=== PATIENT | female | born 1970 | race African-American/Black ===

== ENCOUNTER 2017-09-09 19:48 | Emergency (ER) | payer OTHER ==
[2017-09-09 20:16] LABS: URINE HCG POC HCG NEGATIVE (Negative)
[2017-09-09 20:27] LABS: BILIRUBIN,URINE NEGATIVE (NEG); CLARITY,URINE CLEAR; COLOR,URINE YELLOW; GLUCOSE,URINE NEGATIVE (NEG); NITRITE,URINE NEGATIVE (NEG); PH,URINE 5.5; PROTEIN,URINE NEGATIVE (NEG-TRACE); UROBILINOGEN,URINE 0.2 mg/dL (0.2 mg/dL)
[2017-09-09 20:40] LABS: BACTERIA,URINE 0 /HPF (0-FEW); RBC,URINE 0 /HPF (0-2); SQUAMOUS EPITHELIAL CELL,UR FEW /LPF
[2017-09-09 20:43] LABS: ADD MAN DIFF? NO
[2017-09-09] MEDS: IV NORMAL SALINE 1000ML BAG 1,000 ML IV (20:48)
[2017-09-09 20:55] LABS: BASO # 0.1 x10^3/uL (0.0-0.2); BASO % 1 % (0-3); EOS # 0.1 x10^3/uL (0.0-0.7); EOS % 1 % (0-3); HEMATOCRIT 25.1 % (36.0-47.0); HEMOGLOBIN 7.9 g/dL (12.0-15.5); LYMPH # 1.9 x10^3/uL (1.0-4.8); LYMPH % 30 % (24-48); MEAN CORPUSCULAR HEMOGLOBIN 21 pg (25-35); MEAN CORPUSCULAR HGB CONC 32 g/dL (31-37); MEAN CORPUSCULAR VOLUME 65 fL (79-100); MONO # 0.6 x10^3/uL (0.0-1.1); MONO % 9 % (0-9); NEUT # 3.9 x10^3uL (1.8-7.7); NEUT % 59 % (31-73); PLATELET COUNT 311 x10^3/uL (140-400); RED BLOOD COUNT 3.84 x10^6/uL (3.50-5.40); RED CELL DISTRIBUTION WIDTH 18.9 % (11.5-14.5); WHITE BLOOD COUNT 6.5 x10^3/uL (4.0-11.0)
[2017-09-09 21:06] LABS: ANION GAP 14 (6-14); BLOOD UREA NITROGEN 8 mg/dL (7-20); CALCIUM 8.9 mg/dL (8.5-10.1); CARBON DIOXIDE 24 mmol/L (21-32); CHLORIDE 101 mmol/L (98-107); CREATININE 0.8 mg/dL (0.6-1.0); GFR 94.3; GLUCOSE 96 mg/dL (70-99); SODIUM 139 mmol/L (136-145)
[2017-09-09 21:33] LABS: PLT ESTIMATE ADEQUATE (ADEQUATE)
[2017-09-09 21:34] LABS: ANISOCYTOSIS SLIGHT; HYPOCHROMIA MARKED; MICROCYTOSIS MARKED; POLYCHROMASIA SLIGHT
[2017-09-09 21:35] LABS: TARGET CELLS OCC; TEAR DROP CELLS OCC
== END 2017-09-09 21:50 | disposition home or self-care (01) ==
LOC: ER 19:48
DX: D50.9 Iron deficiency anemia, unspecified (principal); R42 Dizziness and giddiness; R11.0 Nausea; I10 Essential (primary) hypertension
CPT/HCPCS: 36415; 80048; 81001; 81025; 85025; 87086; 93005; 99285-25; J7030

== ENCOUNTER 2017-12-24 08:49 | Emergency (ER) | payer SELFPAY ==
[~2017-12-24] VITALS: Ht 162.6 cm; Wt 82.6 kg
[~2017-12-24 08:49] MED LIST: FERR325T14 PO
[2017-12-24 09:18] LABS: BILIRUBIN,URINE NEGATIVE (NEG); CLARITY,URINE CLEAR; COLOR,URINE YELLOW; NITRITE,URINE NEGATIVE (NEG); PH,URINE 7.5; PROTEIN,URINE NEGATIVE (NEG-TRACE); UROBILINOGEN,URINE 0.2 mg/dL (0.2 mg/dL)
--- NOTE | 2017-12-24 09:19 | PHYS DOC ---
Past Medical History Past Medical History: Alcoholism, Anemia, Hypertension Additional Past Medical Histor: PICA; blood transfusion Past Surgical History: No Surgical History Additional Information: 5 cigarettes per day Alcohol Use: Heavy Drug Use: None Adult General Chief Complaint Chief Complaint: ALCOHOL INTOXICATION HPI HPI Patient is a 47 year old female with history of alcoholism, anxiety, anemia, who presents today stating "I have alcohol poisoning". Patient states she has been drinking vodka for 3 straight days. She states she has history of binge drinking. She states this morning she noted she was nauseated. Denies any vomiting. She states she does not need help with alcohol use. Review of Systems Review of Systems Constitutional: Denies fever or chills [] Eyes: Denies change in visual acuity, redness, or eye pain [] HENT: Denies nasal congestion or sore throat [] Respiratory: Denies cough or shortness of breath [] Cardiovascular: No additional information not addressed in HPI [] GI: Denies abdominal pain, nausea, vomiting, bloody stools or diarrhea [] : Denies dysuria or hematuria [] Musculoskeletal: Denies back pain or joint pain [] Integument: Denies rash or skin lesions [] Neurologic: Denies headache, focal weakness or sensory changes [] Psych: Reports alcohol intoxication All other systems were reviewed and found to be within normal limits, except as documented in this note. Current Medications Current Medications Current Medications Medications (Trade) Dose Ordered Sig/Beatris Start Time Stop Time Status Last Admin Dose Admin Multivitamins 10 ml/Thiamine HCl 100 mg/Folic Acid 1 mg/Sodium Chloride 1,011.2 ml @ 1,000.088 mls/hr 1X ONCE 12/24/17 09:30 12/24/17 10:30 12/24/17 09:37 1,000.088 MLS/HR Ondansetron HCl (Zofran) 4 mg 1X ONCE 12/24/17 09:30 12/24/17 09:31 DC 12/24/17 09:38 4 MG Pantoprazole Sodium (PROTONIX VIAL for IV PUSH) 40 mg 1X ONCE 12/24/17 09:30 12/24/17 09:31 DC 12/24/17 09:38 40 MG Allergies Allergies Allergies Coded Allergies Type Severity Reaction Last Updated Verified No Known Drug Allergies 07/19/14 No Physical Exam Physical Exam Constitutional: Well developed, well nourished, no acute distress, non-toxic appearance. [] HENT: Normocephalic, atraumatic, bilateral external ears normal, oropharynx moist, no oral exudates, nose normal. [] Eyes: PERRLA, EOMI, conjunctiva normal, no discharge. [] Neck: Normal range of motion, no tenderness, supple, no stridor. [] Cardiovascular:Heart rate regular rhythm, no murmur [] Lungs & Thorax: Bilateral breath sounds clear to auscultation [] Abdomen: Bowel sounds normal, soft, no tenderness, no masses, no pulsatile masses. [] Skin: Warm, dry, no erythema, no rash. [] Back: No tenderness, no CVA tenderness. [] Extremities: No tenderness, no cyanosis, no clubbing, ROM intact, no edema. [] Neurologic: Alert and oriented X 3, normal motor function, normal sensory function, no focal deficits noted. Cranial nerves II through XII intact Psychologic: Patient has been laughing frequently during the visit Current Patient Data Vital Signs Vital Signs Date Time Temp Pulse Resp B/P (MAP) Pulse Ox O2 Delivery O2 Flow Rate FiO2 12/24/17 09:33 72 16 150/91 (110) 97 Room Air 12/24/17 08:55 98.6 98.6 Lab Values Laboratory Tests Test 12/24/17 09:03 12/24/17 09:10 12/24/17 09:30 Urine Collection Type Void Urine Color Yellow Urine Clarity Clear Urine pH 7.5 Urine Specific [place] 1.015 Urine Protein Negative mg/dL (NEG-TRACE) Urine Glucose (UA) Negative mg/dL (NEG) Urine Ketones (Stick) Negative mg/dL (NEG) Urine Blood Negative (NEG) Urine Nitrite Negative (NEG) Urine Bilirubin Negative (NEG) Urine Urobilinogen Dipstick 0.2 mg/dL (0.2 mg/dL) Urine Leukocyte Esterase Negative (NEG) Urine RBC 0 /HPF (0-2) Urine WBC Occ /HPF (0-4) Urine Squamous Epithelial Cells Few /LPF Urine Bacteria 0 /HPF (0-FEW) Urine Opiates Screen Neg (NEG) Urine Methadone Screen Neg (NEG) Urine Barbiturates Neg (NEG) Urine Phencyclidine Screen Neg (NEG) Urine Amphetamine/Methamphetamine Neg (NEG) Urine Benzodiazepines Screen Neg (NEG) Urine Cocaine Screen Neg (NEG) Urine Cannabinoids Screen Neg (NEG) Urine Ethyl Alcohol Pos (NEG) POC Urine HCG, Qualitative Hcg negative (Negative) White Blood Count 3.1 x10^3/uL (4.0-11.0) L Red Blood Count 3.74 x10^6/uL (3.50-5.40) Hemoglobin 9.4 g/dL (12.0-15.5) L Hematocrit 29.0 % (36.0-47.0) L Mean Corpuscular Volume 77 fL (79-100) L Mean Corpuscular Hemoglobin 25 pg (25-35) Mean Corpuscular Hemoglobin Concent 33 g/dL (31-37) Red Cell Distribution Width 18.3 % (11.5-14.5) H Platelet Count 377 x10^3/uL (140-400) Neutrophils (%) (Auto) 48 % (31-73) Lymphocytes (%) (Auto) 36 % (24-48) Monocytes (%) (Auto) 12 % (0-9) H Eosinophils (%) (Auto) 3 % (0-3) Basophils (%) (Auto) 2 % (0-3) Neutrophils # (Auto) 1.5 x10^3uL (1.8-7.7) L Lymphocytes # (Auto) 1.1 x10^3/uL (1.0-4.8) Monocytes # (Auto) 0.4 x10^3/uL (0.0-1.1) Eosinophils # (Auto) 0.1 x10^3/uL (0.0-0.7) Basophils # (Auto) 0.1 x10^3/uL (0.0-0.2) Sodium Level 138 mmol/L (136-145) Potassium Level 3.6 mmol/L (3.5-5.1) Chloride Level 105 mmol/L (98-107) Carbon Dioxide Level 26 mmol/L (21-32) Anion Gap 7 (6-14) Blood Urea Nitrogen 12 mg/dL (7-20) Creatinine 0.7 mg/dL (0.6-1.0) Estimated GFR (Cockcroft-Gault) 109.5 BUN/Creatinine Ratio 17 (6-20) Glucose Level 100 mg/dL (70-99) H Calcium Level 8.3 mg/dL (8.5-10.1) L Total Bilirubin 0.2 mg/dL (0.2-1.0) Aspartate Amino Transferase (AST) 24 U/L (15-37) Alanine Aminotransferase (ALT) 24 U/L (14-59) Alkaline Phosphatase 68 U/L (46-116) Total Protein 7.5 g/dL (6.4-8.2) Albumin 3.4 g/dL (3.4-5.0) Albumin/Globulin Ratio 0.8 (1.0-1.7) L Lipase 156 U/L (73-393) Salicylates Level < 2.8 mg/dL (2.8-20.0) L Salicylate Last Dose Date Unknown Salicylate Last Dose Time Unknown Acetaminophen Level < 2.0 mcg/ml (10-30) L Acetaminophen Last Dose Date Unknown Acetaminophen Last Dose Time Unknown Ethyl Alcohol Level 156 mg/dL (0-10) H Laboratory Tests 12/24/17 09:30 Laboratory Tests 12/24/17 09:30 EKG EKG [] Radiology/Procedures Radiology/Procedures [] Course & Med Decision Making Course & Med Decision Making Pertinent Labs and Imaging studies reviewed. (See chart for details) This is a 47-year-old female patient presented to the ED today complaining of a cold intoxication. Has been drinking vodka 3 days straight. CBC with hemoglobin of 9.4 hematocrit 29.0, patient states she has history of fibroids and runs a low hemoglobin. CMP with no acute findings, alcohol level 156, patient is alert and oriented 3 most of the time laughing during conversations. Offered patient help with alcoholism, she refused. Patient was discharged with instructions to follow-up with her own doctor as needed. Dragon Disclaimer Dragon Disclaimer This electronic medical record was generated, in whole or in part, using a voice recognition dictation system. Departure Departure Impression: Primary Impression: Alcohol intoxication Additional Impression: Anemia Disposition: 01 HOME, SELF-CARE Condition: STABLE Referrals: NO PCP (PCP) Follow-up with [facility] for alcohol use if interested. ZAHRA FORD Jr, MD follow up for chronic fibroids Patient Instructions: Alcohol Intoxication, Anemia, FAQs Additional Instructions: You were evaluated in the emergency room for alcoholism. We recommend you get help at [facility] or any alcoholic anonymous groups of your interest. Consider taking vitamins for your low hemoglobin. Consider following up with an [facility] for fibroids. Come back to the ED at any point symptoms worsen. Problem Qualifiers Primary Impression: Alcohol intoxication Complication of substance-induced condition: uncomplicated Qualified Codes: F10.920 - Alcohol use, unspecified with intoxication, uncomplicated Additional Impression: Anemia Anemia type: unspecified type Qualified Codes: D64.9 - Anemia, unspecified MARIANA BARTHOLOMEW BLOCK MECHANIC Dec 24, 2017 09:19
[2017-12-24 09:23] LABS: BARBITURATES NEG (NEG); BENZODIAZEPINES NEG (NEG); CANNABINOIDS NEG (NEG); COCAINE NEG (NEG); METHADONE NEG (NEG); OPIATES NEG (NEG); PHENCYCLIDINE NEG (NEG)
[2017-12-24 09:24] LABS: AMPHETAMINE/METHAMPHETAMINE NEG (NEG)
[2017-12-24 09:28] LABS: BACTERIA,URINE 0 /HPF (0-FEW); RBC,URINE 0 /HPF (0-2); SQUAMOUS EPITHELIAL CELL,UR FEW /LPF; WBC,URINE OCC /HPF (0-4)
[2017-12-24] MEDS ORDERED: PANTOPRAZOLE IV PUSH 40 MG VIAL. IVP ONE (09:30)
[2017-12-24] MEDS ORDERED: MULTIVIT INFUSN,ADULT 4,VIT K 10 ML, THIAMINE 100 MG, FOLIC ACID 1 MG in IV NORMAL SALI... IV ONE (09:30)
[2017-12-24] MEDS ORDERED: ONDANSETRON PF 4 MG/2 ML VIAL. IV ONE (09:30)
[2017-12-24 09:48] LABS: BASO # 0.1 x10^3/uL (0.0-0.2); BASO % 2 % (0-3); EOS # 0.1 x10^3/uL (0.0-0.7); EOS % 3 % (0-3); HEMOGLOBIN 9.4 g/dL (12.0-15.5); LYMPH # 1.1 x10^3/uL (1.0-4.8); LYMPH % 36 % (24-48); MEAN CORPUSCULAR HEMOGLOBIN 25 pg (25-35); MEAN CORPUSCULAR HGB CONC 33 g/dL (31-37); MEAN CORPUSCULAR VOLUME 77 fL (79-100); MONO # 0.4 x10^3/uL (0.0-1.1); MONO % 12 % (0-9); NEUT # 1.5 x10^3uL (1.8-7.7); NEUT % 48 % (31-73); PLATELET COUNT 377 x10^3/uL (140-400); RED BLOOD COUNT 3.74 x10^6/uL (3.50-5.40); RED CELL DISTRIBUTION WIDTH 18.3 % (11.5-14.5); WHITE BLOOD COUNT 3.1 x10^3/uL (4.0-11.0)
[2017-12-24 09:56] LABS: CALCIUM 8.3 mg/dL (8.5-10.1); CREATININE 0.7 mg/dL (0.6-1.0); GFR 109.5; POTASSIUM 3.6 mmol/L (3.5-5.1)
[2017-12-24 09:57] LABS: ACETAMIN < 2.0 mcg/ml (10-30); ETHANOL 156 mg/dL (0-10); SALIC < 2.8 mg/dL (2.8-20.0)
[2017-12-24 09:58] LABS: ALBUMIN 3.4 g/dL (3.4-5.0); ALBUMIN/GLOBULIN RATIO 0.8 (1.0-1.7); TOTAL BILIRUBIN 0.2 mg/dL (0.2-1.0); TOTAL PROTEIN 7.5 g/dL (6.4-8.2)
[2017-12-24 10:33] VITALS: BP 142/78
== END 2017-12-24 10:55 | disposition home or self-care (01) ==
LOC: ER 08:49
DX: F10.129 Alcohol abuse with intoxication, unspecified (principal); I10 Essential (primary) hypertension; D64.9 Anemia, unspecified; F17.210 Nicotine dependence, cigarettes, uncomplicated; Y90.9 Presence of alcohol in blood, level not specified
CPT/HCPCS: 36415; 80053; 80307; 80329; 81001; 81025; 83690; 85025; 96365; 96375; 99284; C9113; G0480; G6039; J2405; J7030; G0479

== ENCOUNTER 2019-07-21 16:26 | Emergency (ER) | payer SELFPAY ==
[~2019-07-21] VITALS: Ht 167.6 cm; Wt 81.8 kg
--- NOTE | 2019-07-21 16:58 | PHYS DOC ---
Past Medical History Past Medical History: Alcoholism, Anemia, Anxiety, Hypertension, Other Additional Past Medical Histor: PICA; blood transfusion Past Surgical History: No Surgical History Smoking Status: Former Smoker Alcohol Use: Heavy Drug Use: None Adult General Chief Complaint Chief Complaint: MUSCLE SPASM/CR[facility] [place] [employer] HPI Patient is a 48 year old female who presents with cough this been ongoing for several months, sore throat this been ongoing for several months, a tight jaw, and body spasms is been ongoing for several days. Also reports diarrhea and loss of appetite. Denies nausea, vomiting. Has a history of hypertension, thyroid, anemia. Complete ROS were reviewed and found to be within normal limits, except as documented in the HPI Current Medications Current Medications Current Medications Medications (Trade) Dose Ordered Sig/Beatris Start Time Stop Time Status Last Admin Dose Admin Lorazepam (Ativan Inj) 2 mg 1X ONCE 07/21/19 17:00 07/21/19 17:01 DC 07/21/19 17:10 2 MG Allergies Allergies Allergies Coded Allergies Type Severity Reaction Last Updated Verified No Known Drug Allergies 07/19/14 No Physical Exam Physical Exam Constitutional: Well developed, well nourished, no acute distress, non-toxic appearance. [] HENT: Normocephalic, atraumatic, bilateral external ears normal, oropharynx moist, no oral exudates, nose normal. mild tetany of jaw Eyes: PERRLA, EOMI, conjunctiva normal, no discharge. [] Neck: Normal range of motion, no tenderness, supple, no stridor. [] Cardiovascular:Heart rate regular rhythm, no murmur [] Lungs & Thorax: Bilateral breath sounds clear to auscultation [] Extremities: No tenderness, no cyanosis, no clubbing, ROM intact, no edema. [] Neurologic: Alert and oriented X 3, normal motor function, normal sensory function, no focal deficits noted. [] Psychologic: Affect normal, judgement normal, mood normal. [] Current Patient Data Vital Signs Vital Signs Date Time Temp Pulse Resp B/P (MAP) Pulse Ox O2 Delivery O2 Flow Rate FiO2 07/21/19 16:26 98.3 107 20 145/103 (117) 98 Room Air 98.3 Lab Values Laboratory Tests Test 07/21/19 17:10 White Blood Count 5.4 x10^3/uL (4.0-11.0) Red Blood Count 4.45 x10^6/uL (3.50-5.40) Hemoglobin 9.3 g/dL (12.0-15.5) L Hematocrit 30.3 % (36.0-47.0) L Mean Corpuscular Volume 68 fL (79-100) L Mean Corpuscular Hemoglobin 21 pg (25-35) L Mean Corpuscular Hemoglobin Concent 31 g/dL (31-37) Red Cell Distribution Width 20.4 % (11.5-14.5) H Platelet Count 321 x10^3/uL (140-400) Neutrophils (%) (Auto) 50 % (31-73) Lymphocytes (%) (Auto) 37 % (24-48) Monocytes (%) (Auto) 10 % (0-9) H Eosinophils (%) (Auto) 2 % (0-3) Basophils (%) (Auto) 1 % (0-3) Neutrophils # (Auto) 2.7 x10^3/uL (1.8-7.7) Lymphocytes # (Auto) 2.0 x10^3/uL (1.0-4.8) Monocytes # (Auto) 0.5 x10^3/uL (0.0-1.1) Eosinophils # (Auto) 0.1 x10^3/uL (0.0-0.7) Basophils # (Auto) 0.1 x10^3/uL (0.0-0.2) Platelet Estimate Adequate (ADEQUATE) Polychromasia Slight Hypochromasia Mod Anisocytosis Mod Microcytosis Marked Sodium Level 135 mmol/L (136-145) L Potassium Level 3.5 mmol/L (3.5-5.1) Chloride Level 97 mmol/L (98-107) L Carbon Dioxide Level 27 mmol/L (21-32) Anion Gap 11 (6-14) Blood Urea Nitrogen 11 mg/dL (7-20) Creatinine 0.9 mg/dL (0.6-1.0) Estimated GFR (Cockcroft-Gault) 81.6 BUN/Creatinine Ratio 12 (6-20) Glucose Level 96 mg/dL (70-99) Calcium Level 8.7 mg/dL (8.5-10.1) Magnesium Level 1.9 mg/dL (1.8-2.4) Total Bilirubin 0.2 mg/dL (0.2-1.0) Aspartate Amino Transferase (AST) 37 U/L (15-37) Alanine Aminotransferase (ALT) 30 U/L (14-59) Alkaline Phosphatase 82 U/L (46-116) Total Protein 7.9 g/dL (6.4-8.2) Albumin 3.3 g/dL (3.4-5.0) L Albumin/Globulin Ratio 0.7 (1.0-1.7) L Thyroid Stimulating Hormone (TSH) 0.336 uIU/mL (0.358-3.74) L Laboratory Tests 07/21/19 17:10 Laboratory Tests 07/21/19 17:10 EKG EKG [] Radiology/Procedures Radiology/Procedures [] Course & Med Decision Making Course & Med Decision Making Pertinent Labs and Imaging studies reviewed. (See chart for details) I will get labs, and give Ativan to try to help loosen the muscles. Labs are unremarkable with exception of a low TSH. Patient likely has hyperthyroidism. Have the patient follow-up with her primary care doctor to further look at this issue. Will also prescribe muscle relaxer. Dragon Disclaimer Dragon Disclaimer This electronic medical record was generated, in whole or in part, using a voice recognition dictation system. Departure Departure Impression: Primary Impression: Muscle cramping Additional Impression: Hyperthyroidism Disposition: 01 HOME, SELF-CARE Condition: STABLE Referrals: NO PCP (PCP) Patient Instructions: Muscle Cramps Additional Instructions: Thank you for visiting [facility]. We appreciate you trusting us with your care. If any additional problems come up don't hesitate to return to visit us. Please follow up with your primary care provider so they can plan additional care if needed and know about the problem that you had. If symptoms worsen come back to the Emergency Department. Any concerning symptoms that start such as chest pain, shortness of air, weakness or numbness on one side of the body, running high fevers or any other concerning symptoms return to the ER. Please follow-up with your primary care doctor regarding your TSH level. Scripts Orphenadrine Citrate (ORPHENADRINE CITRATE) 100 Mg Tablet.er 100 MG PO BID for 5 Days, #10 TAB.SR Prov: BHANU UGARTE APRN 07/21/19 Problem Qualifiers BHANU UGARTE APRN Jul 21, 2019 16:58
[2019-07-21 17:26] LABS: BASO # 0.1 x10^3/uL (0.0-0.2); BASO % 1 % (0-3); EOS # 0.1 x10^3/uL (0.0-0.7); EOS % 2 % (0-3); HEMATOCRIT 30.3 % (36.0-47.0); HEMOGLOBIN 9.3 g/dL (12.0-15.5); LYMPH % 37 % (24-48); MEAN CORPUSCULAR HEMOGLOBIN 21 pg (25-35); MEAN CORPUSCULAR HGB CONC 31 g/dL (31-37); MEAN CORPUSCULAR VOLUME 68 fL (79-100); MONO # 0.5 x10^3/uL (0.0-1.1); MONO % 10 % (0-9); NEUT # 2.7 x10^3/uL (1.8-7.7); NEUT % 50 % (31-73); PLATELET COUNT 321 x10^3/uL (140-400); RED BLOOD COUNT 4.45 x10^6/uL (3.50-5.40); RED CELL DISTRIBUTION WIDTH 20.4 % (11.5-14.5); WHITE BLOOD COUNT 5.4 x10^3/uL (4.0-11.0)
[2019-07-21 17:27] LABS: CALCIUM 8.7 mg/dL (8.5-10.1); CREATININE 0.9 mg/dL (0.6-1.0); GFR 81.6; POTASSIUM 3.5 mmol/L (3.5-5.1)
[2019-07-21 17:34] LABS: ALBUMIN 3.3 g/dL (3.4-5.0); ALBUMIN/GLOBULIN RATIO 0.7 (1.0-1.7); MAGNESIUM 1.9 mg/dL (1.8-2.4); TOTAL BILIRUBIN 0.2 mg/dL (0.2-1.0); TOTAL PROTEIN 7.9 g/dL (6.4-8.2)
--- NOTE | 2019-07-21 17:47 | RAD ---
Exam: Chest 2 views INDICATION: Cough TECHNIQUE: Frontal and lateral views the chest Comparisons: None FINDINGS: The cardiomediastinal silhouette and pulmonary vessels are within normal limits. The lung and pleural spaces are clear. IMPRESSION: No acute cardiopulmonary process. Electronically signed by: Arely Caicedo MD (07/21/2019 5:44 PM) [id number]
[2019-07-21 17:59] LABS: ANISOCYTOSIS MOD; HYPOCHROMIA MOD; MICROCYTOSIS MARKED; PLT ESTIMATE ADEQUATE (ADEQUATE); POLYCHROMASIA SLIGHT
[2019-07-21 18:00] VITALS: BP 120/83
[2019-07-21] MEDS ORDERED: ORPH100T PO (18:38)
== END 2019-07-21 18:46 | disposition home or self-care (01) ==
LOC: ER 16:26
DX: R25.2 Cramp and spasm (principal); E03.9 Hypothyroidism, unspecified; R05 Cough; R19.7 Diarrhea, unspecified; F41.9 Anxiety disorder, unspecified; I10 Essential (primary) hypertension; F10.10 Alcohol abuse, uncomplicated; Z87.891 Personal history of nicotine dependence
CPT/HCPCS: 36415; 71046; 80053; 83735; 84443; 85025; 96374; 99284; J2060

== ENCOUNTER 2020-11-12 10:48 | Emergency (ER) | payer SELFPAY ==
[~2020-11-12] VITALS: Ht 162.6 cm; Wt 100.0 kg
[~2020-11-12 10:48] MED LIST changes: +ORPH100T PO
[2020-11-12 11:01] VITALS: BP 108/72
[2020-11-12] MEDS ORDERED: NAPROXEN 500 MG TABLET PO STA (11:06)
[2020-11-12] MEDS ORDERED: HYDROcodone/APAP 5/325MG 1 TAB TABLET PO ONE (11:15)
--- NOTE | 2020-11-12 11:15 | PHYS DOC ---
Past Medical History Past Medical History: Alcoholism, Anemia, Anxiety, Hypertension, Other Additional Past Medical Histor: PICA; blood transfusion (MARIANA BARTHOLOMEW FIRE RANGER) Past Surgical History: No Surgical History (MARIANA BARTHOLOMEW FIRE RANGER) Smoking Status: Former Smoker Alcohol Use: Heavy Drug Use: None (MARIANA BARTHOLOMEW APRN) General Adult EDM: Chief Complaint: ANKLE PROBLEM HPI: HPI: Patient is a 50 year old female with history of hypertension, anemia, anxiety, alcoholism, who presents to the ED today complaining of 6 out of 10 right lateral ankle pain, symptoms began last night after she rolled her ankle walking in high-heeled clogs. Patient states the pain is sharp constant worse on weightbearing. Denies anything specifically relieving the pain. Patient is crying out loud, on further investigation she states she lost her in December last year. (MARIANA BARTHOLOMEW FIRE RANGER) Review of Systems: Review of Systems: Constitutional: Denies fever or chills. [] Musculoskeletal: Reports right ankle pain, denies any back pain Integument: Denies rash. [] Neurologic: Denies headache, focal weakness or sensory changes. [] Psychiatric: Patient is crying out loud (MARIANA BARTHOLOMEW FIRE RANGER) Heart Score: C/O Chest Pain: N/A Risk Factors: Risk Factors: DM, Current or recent (<one month) smoker, HTN, HLP, family hi story of CAD, obesity. Risk Scores: Score 0 - 3: 2.5% MACE over next 6 weeks - Discharge Home Score 4 - 6: 20.3% MACE over next 6 weeks - Admit for Clinical Observation Score 7 - 10: 72.7% MACE over next 6 weeks - Early Invasive Strategies (MARIANA BARTHOLOMEW FIRE RANGER) Current Medications: Current Medications Medications (Trade) Dose Ordered Sig/Beatris Start Time Stop Time Status Last Admin Dose Admin Acetaminophen/ Hydrocodone Bitart (Lortab 5/325) 2 tab 1X ONCE 11/12/20 11:15 11/12/20 11:16 Naproxen (Naprosyn) 500 mg 1X STAT 11/12/20 11:06 11/12/20 11:07 DC (MARIANA BARTHOLOMEW FIRE RANGER) Allergies: Allergies: Allergies Coded Allergies Type Severity Reaction Last Updated Verified No Known Drug Allergies 3/23/15 No (MARIANA BARTHOLOMEW FIRE RANGER) Physical Exam: PE: Constitutional: Well developed, well nourished, no acute distress, non-toxic appearance. [] Skin: Warm, dry, no erythema, no rash. [] Back: No tenderness, no CVA tenderness. [] Extremities: Right ankle with mild soft tissue swelling, moderate tenderness on palpation of the right lateral ankle. Limited range of motion to the right ankle due to pain. Full range of motion to the right toes. +2 right pedal pulse. Cap refill less than 2 seconds to right toes. Neurologic: Alert and oriented X 3, normal motor function, normal sensory function, no focal deficits noted. [] Psychologic: Crying out loud, flat affect (MARIANA BARTHOLOMEW APRN) EKG: EKG: [] (MARIANA BARTHOLOMEW APRN) Radiology/Procedures: Radiology/Procedures: []PROCEDURE: ANKLE RIGHT 3V XR EXAM OF ANKLE_RIGHT 3VIEWS History: Rolled ankle yesterday. Comparison: None. Technique: 3 views of the right ankle Findings: Osseous mineralization is normal. There is an oblique fracture of the distal fibula extending to the level of the tibiotalar joint. The medial clear space does not appear significantly widened. The talar dome is intact. There is diffuse ankle soft tissue swelling. Impression: 1. Oblique fracture of the distal fibula extending to the level of the tibiotalar joint. 2. Medial clear space does not appear widened, however consider stress views or examination for possible syndesmotic injury. Electronically signed by: Basil Tipton MD (11/12/2020 11:24 AM) [facility] DICTATED and SIGNED BY: BSAIL TIPTON MD DATE: 11/12/20 [id number] (MARIANA BARTHOLOMEW APRN) Course & Med Decision Making: Course & Med Decision Making Pertinent Labs and Imaging studies reviewed. (See chart for details) This a 50-year-old female patient presenting to the ED today with right ankle pain after rolling her ankle last night. Left ankle x-rays interpreted by radiologist were noted for oblique fracture of the distal fibula extending to the level of the tibiotalar joint. Medial clear space does not appear widened, however consider stress views or examination for possible syndesmotic injury. Spoke with Dr. Johnson, he requested we get patient to come boot walker if available if not she can buy one at the [facility]. Luciana from the PAT team came to talk to patient. She was resistant to getting help but was provided resources. Nursing staff report she has been very mean to the point she threw her cup on the floor infront of the nurse after being given hydrocodone. (MARIANA BARTHOLOMEW APRN) Dragon Disclaimer: Dragon Disclaimer: This electronic medical record was generated, in whole or in part, using a voice recognition dictation system. (MARIANA BARTHOLOMEW APRN) Departure Departure Impression: Primary Impression: Fracture, fibula, proximal Qualified Codes: S82.832A - Other fracture of upper and lower end of left fibula, initial encounter for closed fracture Disposition: HOME / SELF CARE / HOMELESS Condition: STABLE Referrals: NO PCP (PCP) WAYLON JOHNSON MD follow up in one week Patient Instructions: Fibular Fracture, Ankle, Adult, Undisplaced, Treated with Immobilization Additional Instructions: Please wear the boot provided when walking. Try to ice and elevate the extremity. Follow-up with the provided orthopedic doctor in a week Scripts Hydrocodone Bit/Acetaminophen (HYDROCODONE-APAP 5-325 ) 1 Tab Tablet 1 TAB PO PRN Q6HRS PRN for PAIN, #14 TAB 0 Refills Prov: MARIANA BARTHOLOMEW APRN 11/12/20 Attending Signature Attending Signature I have reviewed the PA/TAKER OFF's note and plan of care. I was available for consultation as needed during the patient's visit in the emergency department. I agree with the clinical impression, plan, and disposition. (BHANU HAYDEN DO) MARIANA BARTHOLOMEW APRN Nov 12, 2020 11:15 BHANU HAYDEN DO Nov 12, 2020 14:08
--- NOTE | 2020-11-12 11:26 | RAD ---
XR EXAM OF ANKLE_RIGHT 3VIEWS History: Rolled ankle yesterday. Comparison: None. Technique: 3 views of the right ankle Findings: Osseous mineralization is normal. There is an oblique fracture of the distal fibula extending to the level of the tibiotalar joint. The medial clear space does not appear significantly widened. The ankur r dome is intact. There is diffuse ankle soft tissue swelling. Impression: 1. Oblique fracture of the distal fibula extending to the level of the tibiotalar joint. 2. Medial clear space does not appear widened, however consider stress views or examination for poss ible syndesmotic injury. Electronically signed by: Basil Benson MD (11/12/2020 11:24 AM) [facility]
[2020-11-12] MEDS ORDERED: MORPHINE SULFATE 4 MG/ML INJ. IM ONE (12:15)
[2020-11-12] MEDS ORDERED: HYDR-2761 PO ×2 (13:34→13:35)
== END 2020-11-12 13:54 | disposition home or self-care (01) ==
LOC: ER 10:48
DX: S82.832A Other fracture of upper and lower end of left fibula, initial encounter for closed fracture (principal); I10 Essential (primary) hypertension; Z87.891 Personal history of nicotine dependence; F10.20 Alcohol dependence, uncomplicated; Y90.9 Presence of alcohol in blood, level not specified; X50.9XXA Other and unspecified overexertion or strenuous movements or postures, initial encounter; Y93.01 Activity, walking, marching and hiking; Y92.89 Other specified places as the place of occurrence of the external cause; Y99.8 Other external cause status
CPT/HCPCS: 73610; 96372; 99283; J2270

== ENCOUNTER 2021-02-06 20:35 | Emergency (ER) | payer OTHER ==
[~2021-02-06 20:35] MED LIST changes: +HYDR-2761 PO
[2021-02-07] MEDS ORDERED: FERR-36 PO (01:12)
[2021-02-07] MEDS ORDERED: POTA20TA4 PO (01:12)
== END 2021-02-06 22:44 | disposition left against medical advice (07) ==
LOC: ER 20:35
DX: M25.579 Pain in unspecified ankle and joints of unspecified foot (principal); M25.569 Pain in unspecified knee; Z53.21 Procedure and treatment not carried out due to patient leaving prior to being seen by health care provider; V89.2XXA Person injured in unspecified motor-vehicle accident, traffic, initial encounter; Y93.89 Activity, other specified; Y92.89 Other specified places as the place of occurrence of the external cause; Y99.8 Other external cause status

== ENCOUNTER 2021-02-06 22:46 | Emergency (ER) | payer OTHER ==
[~2021-02-06] VITALS: Ht 165.1 cm; Wt 75.0 kg
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
[2021-02-06 23:28] VITALS: BP 142/88
[2021-02-06 23:35] LABS: BASO # 0.1 x10^3/uL (0.0-0.2); BASO % 1 % (0-3); EOS # 0.1 x10^3/uL (0.0-0.7); EOS % 1 % (0-3); HEMATOCRIT 26.7 % (36.0-47.0); HEMOGLOBIN 8.2 g/dL (12.0-15.5); LYMPH # 1.6 x10^3/uL (1.0-4.8); LYMPH % 25 % (24-48); MEAN CORPUSCULAR HEMOGLOBIN 21 pg (25-35); MEAN CORPUSCULAR HGB CONC 31 g/dL (31-37); MEAN CORPUSCULAR VOLUME 68 fL (79-100); MONO # 0.7 x10^3/uL (0.0-1.1); MONO % 10 % (0-9); NEUT % 62 % (31-73); PLATELET COUNT 294 x10^3/uL (140-400); RED BLOOD COUNT 3.95 x10^6/uL (3.50-5.40); RED CELL DISTRIBUTION WIDTH 21.5 % (11.5-14.5); WHITE BLOOD COUNT 6.5 x10^3/uL (4.0-11.0)
[2021-02-06 23:35] LABS: BILIRUBIN,URINE NEGATIVE (NEG); CLARITY,URINE CLEAR; COLOR,URINE YELLOW; NITRITE,URINE NEGATIVE (NEG); PH,URINE 6.5 (<5.0-8.0); PROTEIN,URINE NEGATIVE (NEG-TRACE); UROBILINOGEN,URINE 0.2 mg/dL (0.2 mg/dL)
[2021-02-06 23:41] LABS: AMPHETAMINE/METHAMPHETAMINE NEG (NEG); BARBITURATES NEG (NEG); BENZODIAZEPINES POS (NEG); CANNABINOIDS NEG (NEG); COCAINE NEG (NEG); METHADONE NEG (NEG); OPIATES NEG (NEG); PHENCYCLIDINE NEG (NEG)
[2021-02-06 23:48] LABS: ALBUMIN 3.3 g/dL (3.4-5.0); ALBUMIN/GLOBULIN RATIO 0.7 (1.0-1.7); CALCIUM 8.7 mg/dL (8.5-10.1); CREATININE 0.8 mg/dL (0.6-1.0); GFR 92.6; TOTAL BILIRUBIN 0.3 mg/dL (0.2-1.0); TOTAL PROTEIN 7.9 g/dL (6.4-8.2)
[2021-02-06 23:50] LABS: BACTERIA,URINE MANY /HPF (0-FEW); WBC,URINE TNTC /HPF (0-4)
[2021-02-06 23:50] LABS: POTASSIUM 2.8 mmol/L (3.5-5.1)
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
[2021-02-07 00:11] LABS: U PREG PATIENT NEGATIVE (NEG)
[2021-02-07 00:18] LABS: ANISOCYTOSIS MOD; HYPOCHROMIA MARKED; MICROCYTOSIS MARKED; PLT ESTIMATE ADEQUATE (ADEQUATE); POLYCHROMASIA SLIGHT
[2021-02-07] MEDS ORDERED: POTASSIUM CHLORIDE 20 MEQ TABLET.ER. PO ONE (00:30)
[2021-02-07] MEDS ORDERED: POTA20TA4 PO (01:12)
[2021-02-07] MEDS ORDERED: FERR-36 PO (01:12)
--- NOTE | 2021-02-14 14:00 | EKG ---
[facility] [address] [place] [address] Test Date: 2021-02-07 Test Time: 00:19:30 Pat Name: LORENA ZAPATA Department: Room: Gender: F Integration Consultant: : 1970 Requested By: DAYSI PALM Order Number: [id number] Reading MD: Alozno Gómez MD Measurements Intervals [place] Rate: 74 P: 52 ME: 228 QRS: -34 QRSD: 72 T: 12 QT: 388 QTc: 431 Interpretive Statements SINUS RHYTHM PROLONGED ME INTERVAL LEFT ANTERIOR FASCICULAR BLOCK Electronically Signed On 02-14-2021 15:04:31 CDT by Alonzo Gómez MD
== END 2021-02-07 01:26 | disposition home or self-care (01) ==
LOC: ER 22:46
DX: S80.01XA Contusion of right knee, initial encounter (principal); E87.6 Hypokalemia; R42 Dizziness and giddiness; D64.9 Anemia, unspecified; I10 Essential (primary) hypertension; F10.20 Alcohol dependence, uncomplicated; Z86.2 Personal history of diseases of the blood and blood-forming organs and certain disorders involving the immune mechanism; Y90.0 Blood alcohol level of less than 20 mg/100 ml; V89.2XXA Person injured in unspecified motor-vehicle accident, traffic, initial encounter; Y93.89 Activity, other specified; Y92.89 Other specified places as the place of occurrence of the external cause; Y99.8 Other external cause status
CPT/HCPCS: 36415; 73590; 80053; 80307; 81001; 81025; 83735; 85025; 87077; 87086; 87186; 99284; 99285

== ENCOUNTER 2021-04-19 01:40 | Observation (INO) | payer SELFPAY ==
[~2021-04-19] VITALS: Ht 160 cm; Wt 86.4 kg
[~2021-04-19 01:40] MED LIST changes: +FERR-36 PO; +FLUO20CA22 PO; +POTA20TA4 PO
[2021-04-19] MEDS ORDERED: ONDANSETRON ODT 4 MG TAB.RAPDIS. ONE (02:00)
[2021-04-19] MEDS ORDERED: IV NORMAL SALINE 1000ML BAG 1,000 ML IV ONE (02:30)
[2021-04-19] MEDS ORDERED: THIAMINE INJ 500 MG in IV DEXTROSE 5% 50 ML IV ONE (02:30)
[2021-04-19] MEDS ORDERED: ONDANSETRON ODT 4 MG TAB.RAPDIS. PO ONE (02:30)
[2021-04-19 03:43] LABS: BASO # 0.1 x10^3/uL (0.0-0.2); BASO % 1 % (0-3); EOS % 0 % (0-3); HEMATOCRIT 30.6 % (36.0-47.0); HEMOGLOBIN 9.7 g/dL (12.0-15.5); LYMPH # 0.4 x10^3/uL (1.0-4.8); LYMPH % 5 % (24-48); MEAN CORPUSCULAR HEMOGLOBIN 25 pg (25-35); MEAN CORPUSCULAR HGB CONC 32 g/dL (31-37); MEAN CORPUSCULAR VOLUME 79 fL (79-100); MONO % 11 % (0-9); NEUT # 7.2 x10^3/uL (1.8-7.7); NEUT % 84 % (31-73); PLATELET COUNT 296 x10^3/uL (140-400); RED BLOOD COUNT 3.86 x10^6/uL (3.50-5.40); RED CELL DISTRIBUTION WIDTH 24.4 % (11.5-14.5); WHITE BLOOD COUNT 8.7 x10^3/uL (4.0-11.0)
[2021-04-19 03:53] LABS: PROTHROMBIN TIME PATIENT 13.8 SEC (11.7-14.0)
[2021-04-19 04:02] LABS: ALBUMIN 3.3 g/dL (3.4-5.0); ALBUMIN/GLOBULIN RATIO 0.7 (1.0-1.7); CALCIUM 7.9 mg/dL (8.5-10.1); CREATININE 0.9 mg/dL (0.6-1.0); GFR 80.9; TOTAL BILIRUBIN 0.4 mg/dL (0.2-1.0)
[2021-04-19 04:03] LABS: POTASSIUM 2.7 mmol/L (3.5-5.1)
[2021-04-19 04:08] LABS: % BASOS 2 % (0-3); % LYMPHS 7 % (24-48); % MONOS 3 % (0-10); % SEGS 88 % (35-66); PLT ESTIMATE ADEQUATE (ADEQUATE)
[2021-04-19 04:09] LABS: ANISOCYTOSIS MOD; HYPOCHROMIA SLIGHT; POLYCHROMASIA SLIGHT
[2021-04-19] MEDS ORDERED: HALOPERIDOL LACTATE 5 MG/ML VIAL. IVP ONE (04:30)
[2021-04-19] MEDS ORDERED: POTASSIUM CHLORIDE 20 MEQ TABLET.ER. PO ONE (05:00)
--- NOTE | 2021-04-19 06:24 | PHYS DOC ---
Past Medical History Past Medical History: Alcoholism, Anemia, Anxiety, Hypertension, Other Additional Past Medical Histor: PICA; blood transfusion-D/T FIBROIDS, LOWER BACK PAIN Past Surgical History: No Surgical History Smoking Status: Former Smoker Alcohol Use: Heavy Drug Use: None Adult General Chief Complaint Chief Complaint: NAUSEA/VOMITING/DIARRHEA HPI HPI 50-year-old female with a history of alcohol abuse presents for evaluation of hypertension, tachycardia and intractable vomiting about a day after deciding to stop drinking alcohol. Patient was admitted to this facility just 10 days ago with the same symptoms. Review of Systems Review of Systems A 12 point review of systems was completed and was negative except where noted in HPI above. Current Medications Current Medications Current Medications Medications (Trade) Dose Ordered Sig/Beatris Start Time Stop Time Status Last Admin Dose Admin Lorazepam (Ativan Inj) 2 mg 1X ONCE 04/19/21 02:30 04/19/21 02:31 DC 04/19/21 02:22 2 MG Ondansetron HCl (Zofran Odt) 8 mg 1X ONCE 04/19/21 02:30 04/19/21 02:31 DC 04/19/21 02:09 8 MG Sodium Chloride 1,000 ml @ 1,000 mls/hr 1X ONCE 04/19/21 02:30 04/19/21 03:29 DC 04/19/21 02:22 1,000 MLS/HR Thiamine HCl 500 mg/Dextrose 55 ml @ 102 mls/hr 1X ONCE 04/19/21 02:30 04/19/21 03:02 DC 04/19/21 02:22 102 MLS/HR Allergies Allergies Allergies Coded Allergies Type Severity Reaction Last Updated Verified No Known Drug Allergies 04/10/21 No Physical Exam Physical Exam Middle-aged female who is tremulous and actively dry heaving. Head is normocephalic and atraumatic. Neck is supple and nontender. Oropharynx is moist. Lungs are clear to auscultation at all stations. There is normal S1 and S2 without rubs or gallops and capillary refill is appropriate, less than 2 seconds globally. Abdomen is soft, nontender and nondistended. Skin is warm and dry without cyanosis, clubbing or edema. Psychiatrically, the patient demonstrates appropriate mood and affect and is alert. Current Patient Data Vital Signs Vital Signs Date Time Temp Pulse Resp B/P (MAP) Pulse Ox O2 Delivery O2 Flow Rate FiO2 04/19/21 03:39 99 143/100 (114) 98 Room Air 04/19/21 01:50 99.2 16 99.2 Lab Values Laboratory Tests Test 04/19/21 03:35 White Blood Count 8.7 x10^3/uL (4.0-11.0) Red Blood Count 3.86 x10^6/uL (3.50-5.40) Hemoglobin 9.7 g/dL (12.0-15.5) L Hematocrit 30.6 % (36.0-47.0) L Mean Corpuscular Volume 79 fL (79-100) Mean Corpuscular Hemoglobin 25 pg (25-35) Mean Corpuscular Hemoglobin Concent 32 g/dL (31-37) Red Cell Distribution Width 24.4 % (11.5-14.5) H Platelet Count 296 x10^3/uL (140-400) Neutrophils (%) (Auto) 84 % (31-73) H Lymphocytes (%) (Auto) 5 % (24-48) L Monocytes (%) (Auto) 11 % (0-9) H Eosinophils (%) (Auto) 0 % (0-3) Basophils (%) (Auto) 1 % (0-3) Neutrophils # (Auto) 7.2 x10^3/uL (1.8-7.7) Lymphocytes # (Auto) 0.4 x10^3/uL (1.0-4.8) L Monocytes # (Auto) 1.0 x10^3/uL (0.0-1.1) Eosinophils # (Auto) 0.0 x10^3/uL (0.0-0.7) Basophils # (Auto) 0.1 x10^3/uL (0.0-0.2) Segmented Neutrophils % 88 % (35-66) H Lymphocytes % 7 % (24-48) L Monocytes % 3 % (0-10) Basophils % 2 % (0-3) Platelet Estimate Adequate (ADEQUATE) Polychromasia Slight Hypochromasia Slight Basophilic Stippling Present Anisocytosis Mod Prothrombin Time 13.8 SEC (11.7-14.0) Prothrombin Time INR 1.1 (0.8-1.1) Activated Partial Thromboplast Time 23 SEC (24-38) L Sodium Level 137 mmol/L (136-145) Potassium Level 2.7 mmol/L (3.5-5.1) *L Chloride Level 98 mmol/L (98-107) Carbon Dioxide Level 25 mmol/L (21-32) Anion Gap 14 (6-14) Blood Urea Nitrogen 5 mg/dL (7-20) L Creatinine 0.9 mg/dL (0.6-1.0) Estimated GFR (Cockcroft-Gault) 80.9 BUN/Creatinine Ratio 6 (6-20) Glucose Level 128 mg/dL (70-99) H Calcium Level 7.9 mg/dL (8.5-10.1) L Total Bilirubin 0.4 mg/dL (0.2-1.0) Aspartate Amino Transferase (AST) 30 U/L (15-37) Alanine Aminotransferase (ALT) 45 U/L (14-59) Alkaline Phosphatase 69 U/L (46-116) Total Protein 8.0 g/dL (6.4-8.2) Albumin 3.3 g/dL (3.4-5.0) L Albumin/Globulin Ratio 0.7 (1.0-1.7) L Lipase 98 U/L (73-393) Ethyl Alcohol Level < 10 mg/dL (0-10) Laboratory Tests 04/19/21 03:35 Laboratory Tests 04/19/21 03:35 EKG EKG [] Course & Med Decision Making Course & Med Decision Making Labs as above are remarkable for hypokalemia and are otherwise without evidence of acute process. Patient has received IV fluids and thiamine and oral potassium repletion along with Ativan for withdrawal and Zofran, then Haldol for vomiting. She is resting very comfortably and feeling much, much better. Will bring in for further care on an observation basis. Dr. Ogden graciously accepts. Dragon Disclaimer Dragon Disclaimer This electronic medical record was generated, in whole or in part, using a voice recognition dictation system. Departure Departure Impression: Primary Impression: Alcohol withdrawal syndrome Additional Impression: Acute hypokalemia Disposition: ADMITTED INPATIENT Admitting Physician: JENNY Condition: STABLE Referrals: NO PCP (PCP) Problem Qualifiers Primary Impression: Alcohol withdrawal syndrome Complication of substance-induced condition: uncomplicated Qualified Codes: F10.230 - Alcohol dependence with withdrawal, uncomplicated ABELINO ENGLAND MD Apr 19, 2021 06:24
[2021-04-19] MEDS ORDERED: ONDANSETRON PF 4 MG/2 ML VIAL. IVP PRN (06:30)
[2021-04-19] MEDS ORDERED: IV NORMAL SALINE 1000ML BAG 1,000 ML IV SCH (07:00)
[2021-04-19 12:22] VITALS: BP 139/84
--- NOTE | 2021-04-19 13:42 | HP ---
DATE OF SERVICE: 04/19/2021 ADMIT DATE: 04/19/2021 CHIEF COMPLAINT: Nausea, vomiting, diarrhea. HISTORY OF PRESENT ILLNESS: The patient is a pleasant 50-year-old female who drinks too much. She presented with nausea, vomiting, and diarrhea. It appears she probably has some gastroenteritis. Now, she is not able to drink, so she is having some withdrawal. I discussed the case with the ER physician. We are admitting the patient. PAST MEDICAL HISTORY: Alcoholism, anemia, anxiety, hypertension, pica, blood transfusions, D/T fibroids, lower back pain, tobacco abuse. ALLERGIES: None. FAMILY HISTORY: Diabetes. SOCIAL HISTORY: She drinks and smokes. No drugs. MEDICATIONS: Reviewed, please refer to the MRAD. REVIEW OF SYSTEMS: GENERAL: No history of weight change, weakness or fevers. SKIN: No bruising, hair changes or rashes. EYES: No blurred, double or loss of vision. NOSE AND THROAT: No history of nosebleeds, hoarseness or sore throat. HEART: No history of palpitations, chest pain or shortness of breath on exertion. LUNGS: Denies cough, hemoptysis, wheezing or shortness of breath. GASTROINTESTINAL: She complains of nausea, vomiting, and diarrhea. GENITOURINARY: No history of frequency, urgency, hesitancy or nocturia. NEUROLOGIC: Denies history of numbness, tingling, tremor or weakness. PSYCHIATRIC: No history of panic, anxiety or depression. ENDOCRINE: No history of heat or cold intolerance, polyuria or polydipsia. EXTREMITIES: Denies muscle weakness, joint pain, pain on walking or stiffness. PHYSICAL EXAMINATION: VITALS: Within normal limits and are stable. GENERAL: She is weak and shaking. HEENT: Normal cephalic atraumatic, external auditory canals are patent. Eyes: Extraocular muscles are intact, pupils are equally round and reactive to light and accommodation. MUSCULOSKELETAL: Well developed, well nourished, good range of motion. ENDOCRINE: No thyromegaly was palpated. LYMPHATICS: No cervical chain or axillary nodes were noted. HEMATOPOIETIC: No bruising. NECK: Supple, no JVD, no thyromegaly was noted. LUNGS: Clear to auscultation in all lung yu without rhonchi or wheezing. HEART: RRR, S1, S2 present. Peripheral pulses intact, no obvious murmurs were noted. ABDOMEN: Soft, nontender. Positive bowel sounds, no organomegaly, normal bowel sounds. EXTREMITIES: Without any cyanosis, clubbing, or edema. Pedal pulses intact, Homans sign is negative. NEUROLOGIC: She is weak and shaking. PSYCHIATRIC: She is weak and shaking. SKIN: No ulcerations or rashes, good skin turgor, no jaundice. VASCULAR: Good capillary refill, neurovascular bundle appears to be intact. LABORATORY DATA: White count is 8.7, hemoglobin 9.7, platelets 296. Electrolytes: Sodium 137, potassium 3.7, chloride 98, bicarbonate 25, BUN 5, creatinine 0.9, glucose 128. INR is 1. Alcohol level is negative. ASSESSMENT AND PLAN: Probable gastroenteritis with secondary to alcohol withdrawal. The patient will be admitted. We will start alcohol withdrawal protocol, IV fluids, benzodiazepines and vitamins. Home meds. Deep venous thrombosis prophylaxis. Full code. FELICIA/HAMZAH/RICHI DR: Virgilio TID: [id number]
[2021-04-25] MEDS ORDERED: POTA20TA4 PO (09:09)
[2021-04-25] MEDS ORDERED: VITA1CAP5 PO (09:09)
[2021-04-25] MEDS ORDERED: MAGN400T48 PO (09:09)
[2021-04-25] MEDS ORDERED: LORA-434 PO ×2 (09:09→11:20)
[2021-04-25] MEDS ORDERED: FLUO20CA22 PO (11:20)
== END 2021-04-19 14:40 | disposition left against medical advice (07) ==
LOC: ER 01:40 → ED HOLD 04:00
PROVIDERS: ADMIT Internal Medicine; ATTEND Internal Medicine
DX: F10.239 Alcohol dependence with withdrawal, unspecified (principal); E87.6 Hypokalemia; I10 Essential (primary) hypertension; D64.9 Anemia, unspecified; R11.2 Nausea with vomiting, unspecified; F41.9 Anxiety disorder, unspecified; Z87.891 Personal history of nicotine dependence; Z79.899 Other long term (current) drug therapy; Z98.890 Other specified postprocedural states
CPT/HCPCS: 36415; 80053; 83690; 85007; 85025; 85610; 85730; 96361; 96365; 96366; 96375; 99284; G0378; G0480; J1630; J2060; J2405; J3411; J7030; J7060; G0379

== ENCOUNTER 2021-04-24 01:58 | Observation (INO) | payer SELFPAY ==
[~2021-04-24] VITALS: Ht 162.6 cm; Wt 86.3 kg
--- NOTE | 2021-04-24 02:59 | PHYS DOC ---
Past Medical History Past Medical History: Alcoholism, Anemia, Anxiety, Hypertension, Other Additional Past Medical Histor: PICA; blood transfusion-D/T FIBROIDS, LOWER BACK PAIN Past Surgical History: No Surgical History Smoking Status: Former Smoker Alcohol Use: Heavy Drug Use: None General Adult EDM: Chief Complaint: NAUSEA/VOMITING/DIARRHEA HPI: HPI: Patient is a 50 year old female who presents with alcohol withdrawal symptoms. She has history of chronic alcohol use disorder. Her last drink was reportedly consumed about 2 days ago. She reports that she has been experiencing nausea and vomiting symptoms as well as shakiness. She denies any history of seizures, denies current seizures. She denies chest pain or dyspnea. She depressed reports mild disc abdominal discomfort but no focal pain. She denies hematemesis. She denies bowel habit changes. Denies melena or hematochezia. She denies fevers or chills. She denies fall, head injury, dizziness, focal weakness. She was seen here last week for the same issue, and she left AGAINST MEDICAL ADVICE. She reports that she left because she "had things to do." Review of Systems: Review of Systems: Constitutional: Denies fever or chills. [] Eyes: Denies change in visual acuity. [] HENT: Denies nasal congestion or sore throat. [] Respiratory: Denies cough or shortness of breath. [] Cardiovascular: Denies chest pain or edema. [] GI: Reports mild abdominal discomfort but no focal pain. Reports nausea and vomiting. Denies hematemesis. Denies bowel habit changes, denies melena or hematochezia peer : Denies urinary symptoms. Musculoskeletal: Denies back pain or joint pain. [] Integument: Denies rash. [] Neurologic: She does report a mild headache. Denies dizziness, vertigo, numbness or tingling or focal motor weakness. Denies fall, head injury, or syncope Psychiatric: Anxiety. Alcohol use disorder. [] Heart Score: C/O Chest Pain: No Risk Factors: Risk Factors: DM, Current or recent (<one month) smoker, HTN, HLP, family history of CAD, obesity. Risk Scores: Score 0 - 3: 2.5% MACE over next 6 weeks - Discharge Home Score 4 - 6: 20.3% MACE over next 6 weeks - Admit for Clinical Observation Score 7 - 10: 72.7% MACE over next 6 weeks - Early Invasive Strategies Allergies: Allergies: Allergies Coded Allergies Type Severity Reaction Last Updated Verified No Known Drug Allergies 04/10/21 No Physical Exam: PE: Constitutional: Well developed, well nourished, no acute distress, non-toxic appearance. [] HENT: Normocephalic, atraumatic, mucous membranes are moist Eyes: No scleral icterus Neck: Normal range of motion, no tenderness, supple, no stridor. Trachea is midline Cardiovascular: Tachycardic, regular, +2 radial and +2 dorsalis pedis pulses bilaterally. Warm and well perfused. No peripheral edema Lungs & Thorax: Bilateral breath sounds clear to auscultation [] Abdomen: Abdomen is obese, soft, minimal epigastric tenderness, no guarding, no rebound tenderness, normal bowel sounds, no CVA tenderness, no palpable organomegaly or masses. No palpable pulsatile mass. Skin: Warm, dry, no erythema, no rash. No jaundice. Back: No tenderness, no CVA tenderness. [] Extremities: No tenderness, no cyanosis, no clubbing, ROM intact, no edema. No calf tenderness. Neurologic: Alert and oriented X 3, normal motor function, normal sensory function, no focal deficits noted. [] Psychologic: She is anxious [] EKG: EKG: [] Radiology/Procedures: Radiology/Procedures: [] Course & Med Decision Making: Course & Med Decision Making Pertinent Labs and Imaging studies reviewed. (See chart for details) I have discussed the findings, differential diagnosis and plan of care with the patient. She is given IV fluids, IV banana bag, IV potassium and IV magnesium replacement. She is given IV Zofran and Ativan. Her tachycardia is resolved. Her blood pressure is stable. She is resting comfortably. She manifests no evidence of tremor. I recommend she be admitted to the hospital for further evaluation and treatment of her condition. She reports that she agrees to stay this time, she promises at this time that she will not leave AGAINST MEDICAL ADVICE again. She is accepted for admission by Dr. Evans. Mikhail Disclaimer: Mikhail Disclaimer: This electronic medical record was generated, in whole or in part, using a voice recognition dictation system. Departure Departure Impression: Primary Impression: Alcohol withdrawal syndrome Additional Impressions: Nausea and vomiting Hypokalemia Hypomagnesemia Dehydration Disposition: ADMITTED INPATIENT Admitting Physician: JENNY (Dr. Evans) Condition: GUARDED Referrals: NO PCP (PCP) SHELLEY MILLER DO Apr 24, 2021 02:59
[2021-04-24] MEDS ORDERED: ONDANSETRON PF 4 MG/2 ML VIAL. IVP ONE ×2 (03:15→04:30)
[2021-04-24] MEDS ORDERED: IV NORMAL SALINE 1000ML BAG 1,000 ML IV ONE (03:15)
[2021-04-24 03:30] LABS: BASO # 0.1 x10^3/uL (0.0-0.2); BASO % 1 % (0-3); EOS # 0.1 x10^3/uL (0.0-0.7); EOS % 1 % (0-3); HEMATOCRIT 31.5 % (36.0-47.0); HEMOGLOBIN 10.4 g/dL (12.0-15.5); LYMPH # 1.5 x10^3/uL (1.0-4.8); LYMPH % 15 % (24-48); MEAN CORPUSCULAR HEMOGLOBIN 26 pg (25-35); MEAN CORPUSCULAR HGB CONC 33 g/dL (31-37); MEAN CORPUSCULAR VOLUME 78 fL (79-100); MONO % 9 % (0-9); NEUT # 7.9 x10^3/uL (1.8-7.7); NEUT % 74 % (31-73); PLATELET COUNT 358 x10^3/uL (140-400); RED BLOOD COUNT 4.02 x10^6/uL (3.50-5.40); WHITE BLOOD COUNT 10.6 x10^3/uL (4.0-11.0)
[2021-04-24 03:45] LABS: ALBUMIN 3.5 g/dL (3.4-5.0); ALBUMIN/GLOBULIN RATIO 0.7 (1.0-1.7); CALCIUM 8.4 mg/dL (8.5-10.1); GFR 71.6; MAGNESIUM 1.2 mg/dL (1.8-2.4); TOTAL BILIRUBIN 0.3 mg/dL (0.2-1.0); TOTAL PROTEIN 8.8 g/dL (6.4-8.2)
[2021-04-24] MEDS ORDERED: MULTIVIT INFUSN,ADULT 4,VIT K 10 ML, THIAMINE INJ 100 MG, FOLIC ACID INJ 1 MG in IV NOR... IV ONE (03:45)
[2021-04-24 03:49] LABS: POTASSIUM 2.9 mmol/L (3.5-5.1)
[2021-04-24 03:51] LABS: PLT ESTIMATE ADEQUATE (ADEQUATE)
[2021-04-24 03:52] LABS: ANISOCYTOSIS MOD; HYPOCHROMIA SLIGHT; POIKILOCYTOSIS SLIGHT; POLYCHROMASIA SLIGHT
[2021-04-24 03:53] LABS: SCHISTOCYTES OCC; TARGET CELLS OCC
[2021-04-24 03:54] LABS: SPHEROCYTES OCC
[2021-04-24] MEDS ORDERED: POTASSIUM CHLORIDE 20MEQ 100 ML IV ONE (04:15)
[2021-04-24] MEDS ORDERED: MAGNESIUM SULFATE 2GM 50 ML IV ONE (04:15)
[2021-04-24] MEDS: POTASSIUM CHLORIDE 10MEQ 100 ML IV SCH ×2 (04:24→05:45)
[2021-04-24] MEDS ORDERED: ONDANSETRON PF 4 MG/2 ML VIAL. IVP PRN ×2 (05:45→10:15)
[2021-04-24] MEDS ORDERED: POTASSIUM CL 20MEQ D5-0.45NACL 1,000 ML IV ONE (06:00)
[2021-04-24 06:18] LABS: CLARITY,URINE TURBID; COLOR,URINE RED; PH,URINE 7.5 (<5.0-8.0)
[2021-04-24 06:25] LABS: BARBITURATES NEG (NEG); BENZODIAZEPINES POS (NEG); CANNABINOIDS NEG (NEG); COCAINE NEG (NEG); METHADONE NEG (NEG); OPIATES NEG (NEG); PHENCYCLIDINE NEG (NEG)
[2021-04-24 06:26] LABS: AMPHETAMINE/METHAMPHETAMINE NEG (NEG); RBC,URINE TNTC /HPF (0-2)
[2021-04-24 06:28] LABS: BACTERIA,URINE FEW /HPF (0-FEW)
[2021-04-24] MEDS ORDERED: ACETAMINOPHEN 325 MG TABLET. PO PRN (10:15)
[2021-04-24] MEDS ORDERED: ELECTROLYTE (NON-ICU) PROTOCOL. MC PRN (10:15)
[2021-04-24] MEDS ORDERED: PROCHLORPERAZINE 10 MG/2 ML VIAL. IVP PRN (10:15)
[2021-04-24] MEDS: ENOXAPARIN 40 MG/0.4 ML SYRINGE. SQ SCH (16:28)
--- NOTE | 2021-04-24 18:28 | PDOC1 ---
History and Physical Date of Service: DOS: DATE: 04/24/21 TIME: 18:27 Chief Complaint: Chief Complain: N/V History of Present Illness: HPI: Patient is a 50 year old female who presents with alcohol withdrawal symptoms. She has history of chronic alcohol use disorder. Her last drink was reportedly consumed about 2 days ago. She reports that she has been experiencing nausea and vomiting symptoms as well as shakiness. She denies any history of seizures, denies current seizures. She denies chest pain or dyspnea. She depressed reports mild disc abdominal discomfort but no focal pain. She denies hematemesis. She denies bowel habit changes. Denies melena or hematochezia. She denies fevers or chills. She denies fall, head injury, dizziness, focal weakness. She was seen here last week for the same issue, and she left AGAINST MEDICAL ADVICE. She reports that she left because she "had things to do." She is given IV fluids, IV banana bag, IV potassium and IV magnesium replacement. She is given IV Zofran and Ativan. Her tachycardia is resolved. Her blood pressure is stable. She is resting comfortably. She manifests no evidence of tremor. I recommend she be admitted to the hospital for further evaluation and treatment of her condition. She reports that she agrees to stay this time, she promises at this time that she will not leave AGAINST MEDICAL ADVICE again Past Medical/Surgical History: PMH/PSH: Past Medical History: Alcoholism, Anemia, Anxiety, Hypertension Additional Past Medical Histor: PICA; blood transfusion-D/T FIBROIDS, LOWER BACK PAIN Past Surgical History: No Surgical History Smoking Status: Former Smoker Alcohol Use: Heavy Drug Use: None Allergies: Allergies: Coded Allergies: No Known Drug Allergies (Unverified , 04/10/21) Family History: Family History: Hypertension Current Medications: Current Medications Current Medications Sodium Chloride 1,000 ml @ 1,000 mls/hr 1X ONCE IV Last administered on 04/24/21at 03:25; Start 04/24/21 at 03:15; Stop 04/24/21 at 04:14; Status DC Ondansetron HCl (Zofran) 4 mg 1X ONCE IVP Last administered on 04/24/21at 03:25; Start 04/24/21 at 03:15; Stop 04/24/21 at 03:17; Status DC Lorazepam (Ativan Inj) 1 mg 1X ONCE IVP Last administered on 04/24/21at 03:25; Start 04/24/21 at 03:15; Stop 04/24/21 at 03:17; Status DC Multivitamins 10 ml/Thiamine HCl 100 mg/Folic Acid 1 mg/Sodium Chloride 1,011.2 ml @ 1,000.088 mls/hr 1X ONCE IV Last administered on 04/24/21at 03:37; Start 04/24/21 at 03:45; Stop 04/24/21 at 04:45; Status DC Potassium Chloride/Water 100 ml @ 50 mls/hr 1X ONCE IV ; Start 04/24/21 at 04:15; Stop 04/24/21 at 06:14; Status UNV Magnesium Sulfate 50 ml @ 25 mls/hr 1X ONCE IV Last administered on 04/24/21at 04:24; Start 04/24/21 at 04:15; Stop 04/24/21 at 06:14; Status DC Potassium Chloride/Water 100 ml @ 100 mls/hr Q1H IV Last administered on 04/24/21at 05:45; Start 04/24/21 at 04:15; Stop 04/24/21 at 06:14; Status DC Ondansetron HCl (Zofran) 4 mg 1X ONCE IVP ; Start 04/24/21 at 04:30; Stop 04/24/21 at 04:31; Status DC Ondansetron HCl (Zofran) 4 mg PRN Q8HRS PRN IVP NAUSEA/VOMITING; Start 04/24/21 at 05:45; Stop 04/24/21 at 10:14; Status DC Potassium Chloride/Dextrose/ Sod Cl 1,000 ml @ 100 mls/hr Q10H ONCE IV Last administered on 04/24/21at 06:29; Start 04/24/21 at 06:00; Stop 04/24/21 at 15:59; Status DC Multivitamins 10 ml/Thiamine HCl 100 mg/Folic Acid 1 mg/Sodium Chloride 1,011.2 ml @ 100 mls/ hr DAILY IV ; Start 04/25/21 at 09:00; Stop 04/28/21 at 19:07 Multivitamins (Thera M Plus) 1 tab DAILY PO ; Start 04/29/21 at 09:00 Folic Acid (Folic Acid) 1 mg DAILY PO ; Start 04/29/21 at 09:00 Thiamine Mononitrate (Vitamin B-1) 100 mg DAILY PO ; Start 04/29/21 at 09:00 Lorazepam (Ativan) 4 mg PRN Q1HR PRN PO For CIWA 8-14 Last administered on 04/24/21at 10:33; Start 04/24/21 at 10:15 Lorazepam (Ativan) 8 mg PRN Q1HR PRN PO For CIWA 15 or greater; Start 04/24/21 at 10:15 Ferrous Sulfate (Feosol) 325 mg DAILY PO ; Start 04/25/21 at 09:00 Fluoxetine HCl (PROzac) 20 mg DAILY PO ; Start 04/25/21 at 09:00 Ondansetron HCl (Zofran) 4 mg PRN Q6HRS PRN IVP NAUSEA/VOMITING Last administered on 04/24/21at 11:02; Start 04/24/21 at 10:15 Prochlorperazine Edisylate (Compazine) 10 mg PRN Q6HRS PRN IVP NAUSEA/VOMITING,2nd CHOICE; Start 04/24/21 at 10:15 Info (Non-Icu Electrolyte Protocol) 1 ea PRN DAILY PRN MC SEE COMMENTS; Start 04/24/21 at 10:15 Acetaminophen (Tylenol) 650 mg PRN Q6HRS PRN PO Headaches, Temp > 101.5F; Start 04/24/21 at 10:15 Senna/Docusate Sodium (Senna Plus) 1 tab BID PO ; Start 04/24/21 at 21:00 Enoxaparin Sodium (Lovenox 40mg Syringe) 40 mg Q24H SQ Last administered on 04/24/21at 16:28; Start 04/24/21 at 16:00 Active Scripts Active Fluoxetine Hcl 20 Mg Capsule 20 Mg PO DAILY 60 Days Potassium Chloride (Potassium Chloride) 20 Meq Tablet.er 20 Meq PO DAILY 7 Days Hydrocodone-Apap 5-325 (Hydrocodone Bit/Acetaminophen) 1 Tab Tablet 1 Tab PO PRN Q6HRS PRN Orphenadrine Citrate 100 Mg Tablet.er 100 Mg PO BID 5 Days Ferrous Sulfate 325 Mg Tablet 1 Tab PO DAILY ROS: Review of Systems Review of System Unless noted in HPI 14 point review of systems was negative Physical Exam: Vital Signs: Vital Signs Date Time Temp Pulse Resp B/P (MAP) Pulse Ox O2 Delivery O2 Flow Rate FiO2 04/24/21 16:49 75 18 116/74 (88) 99 Room Air 04/24/21 03:04 98.4 98.4 Physcial Exam: GEN: No apparent distress. Alert and oriented HEENT: Normal cephalic, atraumatic, external auditory canals are patent EYES: Extraocular muscles are intact, pupil are equally round and reactive to light and accommodation MUSCULOSKELETAL: Well developed , well nourished, good range of motion ENDOCRINE: No thyromegaly was palpated LYMPHATICS: No cervical chain or axillary nodes were noted HEMATOPOIETIC: No bruising NECK: Supple, no JVD, no thyromegaly was noted LUNGS: Clear to auscultation in all lung yu without rhonchi or wheezing HEART: RRR, S!, S2 present. Peripheral pulses intact, no obvious murmurs noted ABDOMEN: Soft, nontender. Positive bowel sounds, no organomegaly, normal bowel sounds EXTREMITIES: Without clubbing, cyanosis, or edema. Pedal pulses intact. Negative Homans sign NEUROLOGIC: Normal speech and tone. A&O x 3, moves all extremities, no obvious focal deficits PSYCHIATRIC: Normal affect, normal mood. Stable SKIN: No ulcerations or rashes, good skin turgor, no jaundice VASCULAR: Good capillary refill, neurovascular bundle appears to be intact Labs: Labs: Laboratory Tests Test 04/24/21 03:20 04/24/21 06:00 White Blood Count 10.6 x10^3/uL (4.0-11.0) Red Blood Count 4.02 x10^6/uL (3.50-5.40) Hemoglobin 10.4 g/dL (12.0-15.5) Hematocrit 31.5 % (36.0-47.0) Mean Corpuscular Volume 78 fL (79-100) Mean Corpuscular Hemoglobin 26 pg (25-35) Mean Corpuscular Hemoglobin Concent 33 g/dL (31-37) Red Cell Distribution Width 24.0 % (11.5-14.5) Platelet Count 358 x10^3/uL (140-400) Neutrophils (%) (Auto) 74 % (31-73) Lymphocytes (%) (Auto) 15 % (24-48) Monocytes (%) (Auto) 9 % (0-9) Eosinophils (%) (Auto) 1 % (0-3) Basophils (%) (Auto) 1 % (0-3) Neutrophils # (Auto) 7.9 x10^3/uL (1.8-7.7) Lymphocytes # (Auto) 1.5 x10^3/uL (1.0-4.8) Monocytes # (Auto) 1.0 x10^3/uL (0.0-1.1) Eosinophils # (Auto) 0.1 x10^3/uL (0.0-0.7) Basophils # (Auto) 0.1 x10^3/uL (0.0-0.2) Platelet Estimate Adequate (ADEQUATE) Polychromasia Slight Hypochromasia Slight Poikilocytosis Slight Anisocytosis Mod Spherocytes Occ Target Cells Occ Schistocytes Occ Sodium Level 133 mmol/L (136-145) Potassium Level 2.9 mmol/L (3.5-5.1) Chloride Level 96 mmol/L (98-107) Carbon Dioxide Level 23 mmol/L (21-32) Anion Gap 14 (6-14) Blood Urea Nitrogen 4 mg/dL (7-20) Creatinine 1.0 mg/dL (0.6-1.0) Estimated GFR (Cockcroft-Gault) 71.6 BUN/Creatinine Ratio 4 (6-20) Glucose Level 121 mg/dL (70-99) Calcium Level 8.4 mg/dL (8.5-10.1) Magnesium Level 1.2 mg/dL (1.8-2.4) Total Bilirubin 0.3 mg/dL (0.2-1.0) Aspartate Amino Transf (AST/SGOT) 31 U/L (15-37) Alanine Aminotransferase (ALT/SGPT) 31 U/L (14-59) Alkaline Phosphatase 79 U/L (46-116) Total Protein 8.8 g/dL (6.4-8.2) Albumin 3.5 g/dL (3.4-5.0) Albumin/Globulin Ratio 0.7 (1.0-1.7) Lipase 76 U/L (73-393) Ethyl Alcohol Level < 10 mg/dL (0-10) Urine Collection Type Unknown Urine Color Red Urine Clarity Turbid Urine pH 7.5 (<5.0-8.0) Urine Specific [place] 1.010 (1.000-1.030) Urine Protein mg/dL (NEG-TRACE) Urine Glucose (UA) mg/dL (NEG) Urine Ketones (Stick) mg/dL (NEG) Urine Blood (NEG) Urine Nitrite (NEG) Urine Bilirubin (NEG) Urine Urobilinogen Dipstick mg/dL (0.2 mg/dL) Urine Leukocyte Esterase (NEG) Urine RBC Tntc /HPF (0-2) Urine WBC 1-4 /HPF (0-4) Urine Bacteria Few /HPF (0-FEW) Urine Opiates Screen Neg (NEG) Urine Methadone Screen Neg (NEG) Urine Barbiturates Neg (NEG) Urine Phencyclidine Screen Neg (NEG) Urine Amphetamine/Methamphetamine Neg (NEG) Urine Benzodiazepines Screen Pos (NEG) Urine Cocaine Screen Neg (NEG) Urine Cannabinoids Screen Neg (NEG) Urine Ethyl Alcohol Neg (NEG) Laboratory Tests Test 04/24/21 03:20 04/24/21 06:00 White Blood Count 10.6 x10^3/uL (4.0-11.0) Red Blood Count 4.02 x10^6/uL (3.50-5.40) Hemoglobin 10.4 g/dL (12.0-15.5) Hematocrit 31.5 % (36.0-47.0) Mean Corpuscular Volume 78 fL (79-100) Mean Corpuscular Hemoglobin 26 pg (25-35) Mean Corpuscular Hemoglobin Concent 33 g/dL (31-37) Red Cell Distribution Width 24.0 % (11.5-14.5) Platelet Count 358 x10^3/uL (140-400) Neutrophils (%) (Auto) 74 % (31-73) Lymphocytes (%) (Auto) 15 % (24-48) Monocytes (%) (Auto) 9 % (0-9) Eosinophils (%) (Auto) 1 % (0-3) Basophils (%) (Auto) 1 % (0-3) Neutrophils # (Auto) 7.9 x10^3/uL (1.8-7.7) Lymphocytes # (Auto) 1.5 x10^3/uL (1.0-4.8) Monocytes # (Auto) 1.0 x10^3/uL (0.0-1.1) Eosinophils # (Auto) 0.1 x10^3/uL (0.0-0.7) Basophils # (Auto) 0.1 x10^3/uL (0.0-0.2) Platelet Estimate Adequate (ADEQUATE) Polychromasia Slight Hypochromasia Slight Poikilocytosis Slight Anisocytosis Mod Spherocytes Occ Target Cells Occ Schistocytes Occ Sodium Level 133 mmol/L (136-145) Potassium Level 2.9 mmol/L (3.5-5.1) Chloride Level 96 mmol/L (98-107) Carbon Dioxide Level 23 mmol/L (21-32) Anion Gap 14 (6-14) Blood Urea Nitrogen 4 mg/dL (7-20) Creatinine 1.0 mg/dL (0.6-1.0) Estimated GFR (Cockcroft-Gault) 71.6 BUN/Creatinine Ratio 4 (6-20) Glucose Level 121 mg/dL (70-99) Calcium Level 8.4 mg/dL (8.5-10.1) Magnesium Level 1.2 mg/dL (1.8-2.4) Total Bilirubin 0.3 mg/dL (0.2-1.0) Aspartate Amino Transf (AST/SGOT) 31 U/L (15-37) Alanine Aminotransferase (ALT/SGPT) 31 U/L (14-59) Alkaline Phosphatase 79 U/L (46-116) Total Protein 8.8 g/dL (6.4-8.2) Albumin 3.5 g/dL (3.4-5.0) Albumin/Globulin Ratio 0.7 (1.0-1.7) Lipase 76 U/L (73-393) Ethyl Alcohol Level < 10 mg/dL (0-10) Urine Collection Type Unknown Urine Color Red Urine Clarity Turbid Urine pH 7.5 (<5.0-8.0) Urine Specific [place] 1.010 (1.000-1.030) Urine Protein mg/dL (NEG-TRACE) Urine Glucose (UA) mg/dL (NEG) Urine Ketones (Stick) mg/dL (NEG) Urine Blood (NEG) Urine Nitrite (NEG) Urine Bilirubin (NEG) Urine Urobilinogen Dipstick mg/dL (0.2 mg/dL) Urine Leukocyte Esterase (NEG) Urine RBC Tntc /HPF (0-2) Urine WBC 1-4 /HPF (0-4) Urine Bacteria Few /HPF (0-FEW) Urine Opiates Screen Neg (NEG) Urine Methadone Screen Neg (NEG) Urine Barbiturates Neg (NEG) Urine Phencyclidine Screen Neg (NEG) Urine Amphetamine/Methamphetamine Neg (NEG) Urine Benzodiazepines Screen Pos (NEG) Urine Cocaine Screen Neg (NEG) Urine Cannabinoids Screen Neg (NEG) Urine Ethyl Alcohol Neg (NEG) Assessment/Plan Assessment/Plan Nausea vomiting secondary to alcohol withdrawal, history hypertension anxiety -Patient presented with nausea vomiting initially left AMA -She represented with same symptoms -Symptom control for now. -Alcohol withdrawal treatment ordered -PAT consult -DVT prophylaxis -Resume home meds as indicated Justifications for Admission Other Justification TACOS WORRELL MD Apr 24, 2021 18:28
[2021-04-24 19:00] VITALS: BP 143/92
--- NOTE | 2021-04-24 19:00 | NUR ---
The patient, LORENA ZAPATA, 50 y/o, F admitted by RENEE MORRELL MD, was given written information regarding hospital policies, unit procedures and contact persons. Valuables were checked and pt refused to lock up any of her belongings. Denies needs currently. Will continue to monitor.
[2021-04-24] MEDS: SENNOSIDES/DOCUSATE 8.6/50MG TABLET. PO SCH (20:43)
[2021-04-24] MEDS ORDERED: AMLO-187 PO (21:59)
[2021-04-24 23:00] VITALS: BP 112/79
[2021-04-25 03:00] VITALS: BP 126/74
[2021-04-25 07:30] VITALS: BP 120/78
[2021-04-25] MEDS ORDERED: THIAMINE 100 MG TABLET. PO SCH (09:00)
[2021-04-25] MEDS ORDERED: FLUoxetine HCL 20 MG CAPSULE PO SCH (09:00)
[2021-04-25] MEDS ORDERED: FERROUS SULFATE 325 MG TABLET. PO SCH (09:00)
[2021-04-25] MEDS ORDERED: POTASSIUM CHLORIDE 20 MEQ TABLET.ER. PO ONE (09:00)
[2021-04-25] MEDS: SENNOSIDES/DOCUSATE 8.6/50MG TABLET. PO SCH (09:00)
[2021-04-25] MEDS ORDERED: MULTIVIT INFUSN,ADULT 4,VIT K 10 ML, THIAMINE INJ 100 MG, FOLIC ACID INJ 1 MG in IV NOR... IV SCH (09:00)
[2021-04-25] MEDS ORDERED: POTA20TA4 PO (09:09)
[2021-04-25] MEDS ORDERED: MAGN400T48 PO (09:09)
[2021-04-25] MEDS ORDERED: VITA1CAP5 PO (09:09)
[2021-04-25] MEDS ORDERED: LORA-434 PO ×2 (09:09→11:20)
[2021-04-25] MEDS ORDERED: MAGNESIUM OXIDE 400 MG TABLET PO SCH (09:15)
[2021-04-25 09:47] LABS: ALBUMIN 2.8 g/dL (3.4-5.0); ALBUMIN/GLOBULIN RATIO 0.7 (1.0-1.7); CREATININE 0.9 mg/dL (0.6-1.0); GFR 80.9; POTASSIUM 3.8 mmol/L (3.5-5.1); TOTAL BILIRUBIN 0.3 mg/dL (0.2-1.0); TOTAL PROTEIN 6.8 g/dL (6.4-8.2)
[2021-04-25] MEDS ORDERED: MAGNESIUM SULFATE 4GM 100 ML IV ONE (10:00)
--- NOTE | 2021-04-25 10:55 | NUR ---
SW following. Discussed with RN, Pt from home. PAT consulted. Pt getting magnesium replacement and then will discharge after seen by PAT. SW will continue to follow.
[2021-04-25 11:09] VITALS: BP 113/78
[2021-04-25] MEDS ORDERED: FLUO20CA22 PO (11:20)
--- NOTE | 2021-04-25 13:16 | PDOC3 ---
Discharge Summary Visit Information Date of Admission: Apr 24, 2021 Date of Discharge: Apr 25, 2021 Final Diagnosis Nausea vomiting secondary to alcohol withdrawal, history hypertension anxiety -Patient presented with nausea vomiting initially left AMA -She represented with same symptoms -Symptom control for now. -Alcohol withdrawal treatment ordered Problems Medical Problems: (1) Alcohol withdrawal syndrome Status: Acute (2) Dehydration Status: Acute (3) Hypomagnesemia Status: Acute (4) Nausea and vomiting Status: Acute Brief Hospital Course Allergies Allergies Coded Allergies Type Severity Reaction Last Updated Verified No Known Drug Allergies 04/10/21 No Vital Signs Vital Signs Date Time Temp Pulse Resp B/P (MAP) Pulse Ox O2 Delivery O2 Flow Rate FiO2 04/25/21 11:09 98.7 75 18 113/78 (90) 98 Room Air 98.7 Lab Results Laboratory Tests Test 04/24/21 03:20 04/24/21 06:00 04/25/21 09:05 White Blood Count 10.6 x10^3/uL (4.0-11.0) Red Blood Count 4.02 x10^6/uL (3.50-5.40) Hemoglobin 10.4 g/dL (12.0-15.5) Hematocrit 31.5 % (36.0-47.0) Mean Corpuscular Volume 78 fL (79-100) Mean Corpuscular Hemoglobin 26 pg (25-35) Mean Corpuscular Hemoglobin Concent 33 g/dL (31-37) Red Cell Distribution Width 24.0 % (11.5-14.5) Platelet Count 358 x10^3/uL (140-400) Neutrophils (%) (Auto) 74 % (31-73) Lymphocytes (%) (Auto) 15 % (24-48) Monocytes (%) (Auto) 9 % (0-9) Eosinophils (%) (Auto) 1 % (0-3) Basophils (%) (Auto) 1 % (0-3) Neutrophils # (Auto) 7.9 x10^3/uL (1.8-7.7) Lymphocytes # (Auto) 1.5 x10^3/uL (1.0-4.8) Monocytes # (Auto) 1.0 x10^3/uL (0.0-1.1) Eosinophils # (Auto) 0.1 x10^3/uL (0.0-0.7) Basophils # (Auto) 0.1 x10^3/uL (0.0-0.2) Platelet Estimate Adequate (ADEQUATE) Polychromasia Slight Hypochromasia Slight Poikilocytosis Slight Anisocytosis Mod Spherocytes Occ Target Cells Occ Schistocytes Occ Sodium Level 133 mmol/L (136-145) 136 mmol/L (136-145) Potassium Level 2.9 mmol/L (3.5-5.1) 3.8 mmol/L (3.5-5.1) Chloride Level 96 mmol/L (98-107) 101 mmol/L (98-107) Carbon Dioxide Level 23 mmol/L (21-32) 25 mmol/L (21-32) Anion Gap 14 (6-14) 10 (6-14) Blood Urea Nitrogen 4 mg/dL (7-20) 4 mg/dL (7-20) Creatinine 1.0 mg/dL (0.6-1.0) 0.9 mg/dL (0.6-1.0) Estimated GFR (Cockcroft-Gault) 71.6 80.9 BUN/Creatinine Ratio 4 (6-20) 4 (6-20) Glucose Level 121 mg/dL (70-99) 145 mg/dL (70-99) Calcium Level 8.4 mg/dL (8.5-10.1) 8.0 mg/dL (8.5-10.1) Magnesium Level 1.2 mg/dL (1.8-2.4) Total Bilirubin 0.3 mg/dL (0.2-1.0) 0.3 mg/dL (0.2-1.0) Aspartate Amino Transf (AST/SGOT) 31 U/L (15-37) 22 U/L (15-37) Alanine Aminotransferase (ALT/SGPT) 31 U/L (14-59) 31 U/L (14-59) Alkaline Phosphatase 79 U/L (46-116) 64 U/L (46-116) Total Protein 8.8 g/dL (6.4-8.2) 6.8 g/dL (6.4-8.2) Albumin 3.5 g/dL (3.4-5.0) 2.8 g/dL (3.4-5.0) Albumin/Globulin Ratio 0.7 (1.0-1.7) 0.7 (1.0-1.7) Lipase 76 U/L (73-393) Ethyl Alcohol Level < 10 mg/dL (0-10) Urine Collection Type Unknown Urine Color Red Urine Clarity Turbid Urine pH 7.5 (<5.0-8.0) Urine Specific [place] 1.010 (1.000-1.030) Urine Protein mg/dL (NEG-TRACE) Urine Glucose (UA) mg/dL (NEG) Urine Ketones (Stick) mg/dL (NEG) Urine Blood (NEG) Urine Nitrite (NEG) Urine Bilirubin (NEG) Urine Urobilinogen Dipstick mg/dL (0.2 mg/dL) Urine Leukocyte Esterase (NEG) Urine RBC Tntc /HPF (0-2) Urine WBC 1-4 /HPF (0-4) Urine Bacteria Few /HPF (0-FEW) Urine Opiates Screen Neg (NEG) Urine Methadone Screen Neg (NEG) Urine Barbiturates Neg (NEG) Urine Phencyclidine Screen Neg (NEG) Urine Amphetamine/Methamphetamine Neg (NEG) Urine Benzodiazepines Screen Pos (NEG) Urine Cocaine Screen Neg (NEG) Urine Cannabinoids Screen Neg (NEG) Urine Ethyl Alcohol Neg (NEG) Laboratory Tests Test 04/25/21 09:05 Sodium Level 136 mmol/L (136-145) Potassium Level 3.8 mmol/L (3.5-5.1) Chloride Level 101 mmol/L (98-107) Carbon Dioxide Level 25 mmol/L (21-32) Anion Gap 10 (6-14) Blood Urea Nitrogen 4 mg/dL (7-20) Creatinine 0.9 mg/dL (0.6-1.0) Estimated GFR (Cockcroft-Gault) 80.9 BUN/Creatinine Ratio 4 (6-20) Glucose Level 145 mg/dL (70-99) Calcium Level 8.0 mg/dL (8.5-10.1) Total Bilirubin 0.3 mg/dL (0.2-1.0) Aspartate Amino Transf (AST/SGOT) 22 U/L (15-37) Alanine Aminotransferase (ALT/SGPT) 31 U/L (14-59) Alkaline Phosphatase 64 U/L (46-116) Total Protein 6.8 g/dL (6.4-8.2) Albumin 2.8 g/dL (3.4-5.0) Albumin/Globulin Ratio 0.7 (1.0-1.7) Brief Hospital Course Ms. Butler is a 50 old female, admit EtOH withdrwal, 3 admit in about a month depression, discussed with PAt team DC home wean benzos Discharge Information Condition at Discharge: Improved Follow Up: Weeks Disposition/Orders: D/C to Home Scheduled Amlodipine Besylate (Amlodipine Besylate) 10 Mg Tablet, 1 TAB PO DAILY for high blood pressure, (Reported) Entered as Reported by: MIGEL ANGUIANO on 04/24/212158 Last Action: New Order on 04/24/212158 by MIGEL ANGUIANO Ferrous Sulfate (Ferrous Sulfate) 325 Mg Tablet, 1 TAB PO DAILY, #30 Ref 3 Prescribed by: RUPINDER MAC D.O. on 09/09/172135 Last Action: Continued on 04/24/211008 by TACOS WORRELL MD Fluoxetine Hcl (Fluoxetine Hcl) 20 Mg Capsule, 20 MG PO DAILY for depression for 60 Days, #30 Ref 2 Prescribed by: RENEE MORRELL on 04/25/21 1120 Lorazepam (Ativan) 1 Mg Tablet, 1 MG PO BID for taper off, #10 Prescribed by: RENEE MORRELL on 04/25/21 1121 Magnesium Oxide (Magnesium Oxide) 400 Mg Tablet, 400 MG PO DAILY for low magnesium, #30 Prescribed by: RENEE MORRELL on 04/25/21 0909 Orphenadrine Citrate (Orphenadrine Citrate) 100 Mg Tablet.er, 100 MG PO BID for 5 Days, #10 Prescribed by: BHANU UGARTE APRN on 07/21/191837 Last Action: HELD on 04/24/211008 by TACOS WORRELL MD Potassium Chloride (Potassium Chloride ) 20 Meq Tablet.er, 20 MEQ PO DAILY for SUPPLEMENT for 7 Days, #7 Prescribed by: RENEE MORRELL on 04/25/21908 Vitamin B Complex & Vit C No.3 (B Complex With Vitamin C) 1 Each Capsule, 1 CAP PO [id number] for vitamin deficient for 30 Days, #30 Ref 0 Prescribed by: RENEE MORRELL on 04/25/21 09 Discontinued Medications Hydrocodone Bit/Acetaminophen (Hydrocodone-Apap 5-325 ) 1 Tab Tablet, 1 TAB PO PRN Q6HRS PRN for PAIN, #14 Ref 0 Prescribed by: Amy Velazquez APRN on 11/12/20 7155 Last Action: HELD on 04/24/21 1009 by TACOS WORRELL MD Patient Instructions Patient Instructions pt seen face to face < 29 min Justicifation of Admission Dx: Justifications for Admission: Justification of Admission Dx: No (ob) RENEE MORRELL MD Apr 25, 2021 13:16
[2021-04-25] MEDS: ENOXAPARIN 40 MG/0.4 ML SYRINGE. SQ SCH (16:00)
--- NOTE | 2021-04-25 16:45 | NUR ---
Discharge Note: LORENA ZAPATA S [address] [place] [address] Discharge instructions and discharge home medications reviewed with Patient and a copy given. All questions have been answered and understanding verbalized. The following instructions and handouts were given: ETOH withdrawal information. Discontinued lines and drains: Peripheral IV. Pt tolerated well. Patient discharged to Home or Self Care. Time unknown. Pt left without notifying staff. This securities underwriter checked room, no belongings obviously seen.
[2021-04-26] MEDS ORDERED: POTASSIUM CHLORIDE 20 MEQ TABLET.ER. PO SCH (08:00)
[2021-04-29] MEDS ORDERED: MULTIVITAMIN with MINERAL TABLET. PO SCH (09:00)
[2021-04-29] MEDS ORDERED: FOLIC ACID 1 MG TABLET. PO SCH (09:00)
[2021-04-29] MEDS ORDERED: THIAMINE 100 MG TABLET. PO SCH (09:00)
== END 2021-04-25 16:47 | disposition home or self-care (01) ==
LOC: ER 01:58 → 5 SOUTH 03:25 → ER 18:53
PROVIDERS: ADMIT Internal Medicine; ATTEND Internal Medicine
DX: R11.2 Nausea with vomiting, unspecified (principal); F10.239 Alcohol dependence with withdrawal, unspecified; I10 Essential (primary) hypertension; E83.42 Hypomagnesemia; F41.9 Anxiety disorder, unspecified; E86.0 Dehydration; E87.6 Hypokalemia; Z53.29 Procedure and treatment not carried out because of patient's decision for other reasons; Z87.891 Personal history of nicotine dependence; Z79.899 Other long term (current) drug therapy; Z98.890 Other specified postprocedural states
CPT/HCPCS: 36415; 80053; 80307; 81001; 83690; 83735; 85025; 96361; 96365; 96366; 96368; 96372; 96375; 96376; 99284; G0378; G0480; J1650; J2060; J2405; J3411; J3475; J3480; J3490; J7030; G0379

== ENCOUNTER 2021-07-17 21:24 | Inpatient (IN) | payer SELFPAY ==
[~2021-07-17] VITALS: Ht 162.6 cm; Wt 85.0 kg
[~2021-07-17 21:24] MED LIST changes: +AMLO-187 PO; +LEVO250T8 PO; +LORA-434 PO; +MAGN400T48 PO; +VITA1CAP5 PO
[2021-07-17] MEDS ORDERED: IV NORMAL SALINE 1000ML BAG 1,000 ML IV ONE (22:45)
[2021-07-17] MEDS ORDERED: DICYCLOMINE 20 MG/2 ML VIAL. IM ONE (22:45)
[2021-07-17] MEDS ORDERED: MULTIVITAMIN with MINERAL TABLET. PO ONE (22:45)
[2021-07-17] MEDS ORDERED: THIAMINE INJ 500 MG in IV DEXTROSE 5% 50 ML IV ONE (23:00)
[2021-07-17 23:24] LABS: BASO # 0.1 x10^3/uL (0.0-0.2); BASO % 1 % (0-3); EOS % 0 % (0-3); HEMATOCRIT 28.4 % (36.0-47.0); HEMOGLOBIN 8.9 g/dL (12.0-15.5); LYMPH % 11 % (24-48); MEAN CORPUSCULAR HEMOGLOBIN 23 pg (25-35); MEAN CORPUSCULAR HGB CONC 31 g/dL (31-37); MEAN CORPUSCULAR VOLUME 72 fL (79-100); MONO # 0.8 x10^3/uL (0.0-1.1); MONO % 8 % (0-9); NEUT # 7.2 x10^3/uL (1.8-7.7); NEUT % 79 % (31-73); PLATELET COUNT 238 x10^3/uL (140-400); RED BLOOD COUNT 3.93 x10^6/uL (3.50-5.40); RED CELL DISTRIBUTION WIDTH 25.6 % (11.5-14.5)
[2021-07-17 23:36] LABS: CALCIUM 8.3 mg/dL (8.5-10.1); GFR 71.6
[2021-07-17 23:42] LABS: ALBUMIN 3.5 g/dL (3.4-5.0); ALBUMIN/GLOBULIN RATIO 0.8 (1.0-1.7); TOTAL BILIRUBIN 0.6 mg/dL (0.2-1.0); TOTAL PROTEIN 7.9 g/dL (6.4-8.2)
--- NOTE | 2021-07-18 00:32 | PHYS DOC ---
Past Medical History Past Medical History: Alcoholism, Anemia, Anxiety, Hypertension, Other Additional Past Medical Histor: ETOH abuse Past Surgical History: No Surgical History Smoking Status: Never Smoker Alcohol Use: Heavy Additional Information: 1 pint a day per pt Drug Use: None Adult General Chief Complaint Chief Complaint: NAUSEA/VOMITING/DIARRHEA HPI HPI The patient is a 50-year-old female with a history of hypertension, chronic anemia and alcohol abuse. She has had a recent admission for alcohol withdrawal. She presents with concern for alcohol withdrawal. States that her last drink of alcohol was last night. She does not answer clearly when asked why she chose to stop drinking last night. She complains of vomiting, epigastric discomfort and shakiness. She denies fevers, hematemesis, hematochezia or melena, upper respiratory congestion/rhinorrhea, cough, sore throat, shortness of breath or chest pain of any kind, right-sided or lower abdominal pain of any kind, flank pain, midline back pain, dysuria, hematuria, polyuria or oliguria, changes in bowel habits. Patient is alert and appropriately interactive and in no acute distress upon initial evaluation here in the emergency department. Review of Systems Review of Systems A 12 point review of systems was completed and was negative except where noted in HPI above. Current Medications Current Medications Current Medications Medications (Trade) Dose Ordered Sig/Beatris Start Time Stop Time Status Last Admin Dose Admin Dicyclomine HCl (Bentyl) 20 mg 1X ONCE 07/17/21 22:45 07/17/21 22:46 DC 07/17/21 22:51 20 MG Lorazepam (Ativan Inj) 2 mg 1X ONCE 07/17/21 22:45 07/17/21 22:46 DC 07/17/21 22:57 2 MG Multivitamins (Thera M Plus) 1 tab 1X ONCE 07/17/21 22:45 07/17/21 22:46 DC 07/17/21 22:45 1 TAB Sodium Chloride 1,000 ml @ 1,000 mls/hr 1X ONCE 07/17/21 22:45 07/17/21 23:44 DC 07/17/21 22:53 1,000 MLS/HR Thiamine HCl 500 mg/Dextrose 55 ml @ 102 mls/hr 1X ONCE 07/17/21 23:00 07/17/21 23:32 DC 07/17/21 22:57 102 MLS/HR Allergies Allergies Allergies Coded Allergies Type Severity Reaction Last Updated Verified No Known Drug Allergies 07/17/21 No Physical Exam Physical Exam Middle-aged -[place] female appearing nontoxic and in no acute distress. Head is normocephalic and atraumatic. Neck is supple and nontender. Oropharynx is moist. Lungs are clear to auscultation at all stations. There is a normal S1 and S2 without rubs or gallops and capillary refill is appropriate, less than 2 seconds globally. Abdomen is soft, nontender and nondistended. Skin is warm and dry without cyanosis, clubbing or edema. Psychiatrically, the patient demonstrates appropriate mood and affect and is alert. Current Patient Data Vital Signs Vital Signs Date Time Temp Pulse Resp B/P (MAP) Pulse Ox O2 Delivery O2 Flow Rate FiO2 07/17/21 23:30 84 22 152/84 (106) 97 Room Air 07/17/21 22:12 98.2 98.2 Lab Values Laboratory Tests Test 07/17/21 23:05 White Blood Count 9.0 x10^3/uL (4.0-11.0) Red Blood Count 3.93 x10^6/uL (3.50-5.40) Hemoglobin 8.9 g/dL (12.0-15.5) L Hematocrit 28.4 % (36.0-47.0) L Mean Corpuscular Volume 72 fL (79-100) L Mean Corpuscular Hemoglobin 23 pg (25-35) L Mean Corpuscular Hemoglobin Concent 31 g/dL (31-37) Red Cell Distribution Width 25.6 % (11.5-14.5) H Platelet Count 238 x10^3/uL (140-400) Neutrophils (%) (Auto) 79 % (31-73) H Lymphocytes (%) (Auto) 11 % (24-48) L Monocytes (%) (Auto) 8 % (0-9) Eosinophils (%) (Auto) 0 % (0-3) Basophils (%) (Auto) 1 % (0-3) Neutrophils # (Auto) 7.2 x10^3/uL (1.8-7.7) Lymphocytes # (Auto) 1.0 x10^3/uL (1.0-4.8) Monocytes # (Auto) 0.8 x10^3/uL (0.0-1.1) Eosinophils # (Auto) 0.0 x10^3/uL (0.0-0.7) Basophils # (Auto) 0.1 x10^3/uL (0.0-0.2) Platelet Estimate Pending Prothrombin Time 13.0 SEC (11.7-14.0) Prothrombin Time INR 1.0 (0.8-1.1) Activated Partial Thromboplast Time 25 SEC (24-38) Sodium Level 135 mmol/L (136-145) L Potassium Level 3.0 mmol/L (3.5-5.1) L Chloride Level 99 mmol/L (98-107) Carbon Dioxide Level 21 mmol/L (21-32) Anion Gap 15 (6-14) H Blood Urea Nitrogen 4 mg/dL (7-20) L Creatinine 1.0 mg/dL (0.6-1.0) Estimated GFR (Cockcroft-Gault) 71.6 BUN/Creatinine Ratio 4 (6-20) L Glucose Level 102 mg/dL (70-99) H Calcium Level 8.3 mg/dL (8.5-10.1) L Total Bilirubin 0.6 mg/dL (0.2-1.0) Aspartate Amino Transferase (AST) 34 U/L (15-37) Alanine Aminotransferase (ALT) 34 U/L (14-59) Alkaline Phosphatase 73 U/L (46-116) Total Protein 7.9 g/dL (6.4-8.2) Albumin 3.5 g/dL (3.4-5.0) Albumin/Globulin Ratio 0.8 (1.0-1.7) L Lipase 77 U/L (73-393) Ethyl Alcohol Level < 10 mg/dL (0-10) Laboratory Tests 07/17/21 23:05 Laboratory Tests 07/17/21 23:05 EKG EKG Sinus rhythm, rate 105, no acute ST elevation or depression, PA 148, QRS 64, QTc 509, EP interpretation. Nonischemic tracing. Radiology/Procedures Radiology/Procedures [] Course & Med Decision Making Course & Med Decision Making Work-up as above. Repleted potassium orally. Patient remains tachycardic and otherwise symptomatic upon serial reassessments so will bring in for medical detox. Graciously accepted for admission by Dr. Todd. Mikhail Disclaestrada Elizondo Disclaimer This electronic medical record was generated, in whole or in part, using a voice recognition dictation system. Departure Departure Impression: Primary Impression: Alcohol withdrawal Additional Impression: Acute hypokalemia Disposition: ADMITTED INPATIENT Condition: STABLE Referrals: NO PCP (PCP) Problem Qualifiers Primary Impression: Alcohol withdrawal Complication of substance-induced condition: uncomplicated Qualified Codes: F10.230 - Alcohol dependence with withdrawal, uncomplicated ABELINO ENGLAND MD Jul 18, 2021 00:32
[2021-07-18] MEDS ORDERED: KETOROLAC 15 MG/ML VIAL. IVP ONE (00:45)
[2021-07-18] MEDS ORDERED: IV NORMAL SALINE 1000ML BAG 1,000 ML IV ONE (00:45)
[2021-07-18] MEDS ORDERED: LIDO:MAALOX 1:1 20 ML SINGLE DOSE. SWSW ONE (00:45)
[2021-07-18] MEDS ORDERED: ONDANSETRON PF 4 MG/2 ML VIAL. IVP PRN ×2 (00:45→09:00)
[2021-07-18] MEDS ORDERED: POTASSIUM CHLORIDE 20 MEQ TABLET.ER. PO ONE ×2 (00:45→16:45)
[2021-07-18] MEDS: IV NORMAL SALINE 1000ML BAG 1,000 ML IV SCH ×3 (00:51→18:01)
[2021-07-18 01:59] VITALS: BP 150/103
[2021-07-18 04:10] LABS: BARBITURATES NEG (NEG); BENZODIAZEPINES POS (NEG); CANNABINOIDS NEG (NEG); COCAINE NEG (NEG); METHADONE NEG (NEG); OPIATES NEG (NEG); PHENCYCLIDINE POS (NEG)
[2021-07-18 04:24] LABS: AMPHETAMINE/METHAMPHETAMINE NEG (NEG)
[2021-07-18 04:47] LABS: ANISOCYTOSIS MARKED; HYPOCHROMIA MOD; MICROCYTOSIS SLIGHT; PLT ESTIMATE ADEQUATE (ADEQUATE); POLYCHROMASIA SLIGHT
[2021-07-18 04:48] LABS: TARGET CELLS FEW
[2021-07-18] MEDS ORDERED: oxyCODONE IR 5 MG TABLET PO ONE (05:00)
[2021-07-18 07:00] VITALS: BP 107/69
[2021-07-18] MEDS: MULTIVITAMIN with MINERAL TABLET. PO SCH (08:47)
[2021-07-18] MEDS: FOLIC ACID 1 MG TABLET. PO SCH (08:47)
--- NOTE | 2021-07-18 08:48 | PDOC1 ---
History and Physical Date of Service: DOS: DATE: 07/18/21 TIME: 08:45 Chief Complaint: Chief Complain: Intractable nausea vomiting and diarrhea History of Present Illness: HPI: 50-year-old female with a history of hypertension, chronic anemia and alcohol abuse. She has had a recent admission for alcohol withdrawal. She presents with concern for alcohol withdrawal. States that her last drink of alcohol was last night. She does not answer clearly when asked why she chose to stop drinking last night. She complains of vomiting, epigastric discomfort and shakiness. She denies fevers, hematemesis, hematochezia or melena, upper respiratory congestion/rhinorrhea, cough, sore throat, shortness of breath or chest pain of any kind, right-sided or lower abdominal pain of any kind, flank pain, midline back pain, dysuria, hematuria, polyuria or oliguria, changes in bowel habits. Patient is alert and appropriately interactive and in no acute distress upon initial evaluation here in the emergency department. Past Medical/Surgical History: PMH/PSH: Past Medical History: Alcoholism, Anemia, Anxiety, Hypertension, ETOH abuse Past Surgical History: No Surgical History Allergies: Allergies: Coded Allergies: No Known Drug Allergies (Unverified , 07/17/21) Family History: Family History: Reviewed with no relative findings in the chart Social History: Social History: Smoking Status: Never Smoker Alcohol Use: Heavy Additional Information: 1 pint a day per pt Drug Use: None Current Medications: Current Medications Current Medications Thiamine HCl 500 mg/Dextrose 55 ml @ 102 mls/hr 1X ONCE IV Last administered on 07/17/21at 22:57; Start 07/17/21 at 23:00; Stop 07/17/21 at 23:32; Status DC Multivitamins (Thera M Plus) 1 tab 1X ONCE PO Last administered on 07/17/21at 22:45; Start 07/17/21 at 22:45; Stop 07/17/21 at 22:46; Status DC Lorazepam (Ativan Inj) 2 mg 1X ONCE IVP Last administered on 07/17/21at 22:57; Start 07/17/21 at 22:45; Stop 07/17/21 at 22:46; Status DC Dicyclomine HCl (Bentyl) 20 mg 1X ONCE IM Last administered on 07/17/21at 22:51; Start 07/17/21 at 22:45; Stop 07/17/21 at 22:46; Status DC Sodium Chloride 1,000 ml @ 1,000 mls/hr 1X ONCE IV Last administered on 07/17/21at 22:53; Start 07/17/21 at 22:45; Stop 07/17/21 at 23:44; Status DC Potassium Chloride (Klor-Con) 40 meq 1X ONCE PO Last administered on 07/18/21at 00:55; Start 07/18/21 at 00:45; Stop 07/18/21 at 00:46; Status DC Lorazepam (Ativan Inj) 2 mg 1X ONCE IVP Last administered on 07/18/21at 00:55; Start 07/18/21 at 00:45; Stop 07/18/21 at 00:46; Status DC Ketorolac Tromethamine (Toradol 15mg Vial) 15 mg 1X ONCE IVP Last administered on 07/18/21at 00:55; Start 07/18/21 at 00:45; Stop 07/18/21 at 00:46; Status DC Multi-Ingredient Mouthwash/Gargle (Gi Cocktail) 20 ml 1X ONCE SWSW Last administered on 07/18/21at 00:57; Start 07/18/21 at 00:45; Stop 07/18/21 at 00:46; Status DC Sodium Chloride 1,000 ml @ 125 mls/hr 1X ONCE IV ; Start 07/18/21 at 00:45; Stop 07/18/21 at 08:44; Status DC Ondansetron HCl (Zofran) 4 mg PRN Q8HRS PRN IVP NAUSEA/VOMITING Last administered on 07/18/21at 03:39; Start 07/18/21 at 00:45; Stop 07/19/21 at 00:44 Sodium Chloride 1,000 ml @ 125 mls/hr Q8H IV Last administered on 07/18/21at 00:51; Start 07/18/21 at 00:45; Stop 07/19/21 at 00:44 Multivitamins (Thera M Plus) 1 tab DAILY PO ; Start 07/18/21 at 09:00 Folic Acid (Folic Acid) 1 mg DAILY PO ; Start 07/18/21 at 09:00 Thiamine HCl (Thiamine Im) 100 mg DAILY IM ; Start 07/18/21 at 09:00; Stop 07/22/21 at 09:01 Lorazepam (Ativan Inj) 2 mg PRN Q1HR PRN IV For CIWA 8-14 Last administered on 07/18/21at 03:40; Start 07/18/21 at 00:45 Lorazepam (Ativan Inj) 4 mg PRN Q1HR PRN IV For CIWA 15 or greater; Start 07/18/21 at 00:45 Oxycodone HCl (Roxicodone) 5 mg 1X ONCE PO Last administered on 07/18/21at 05:11; Start 07/18/21 at 05:00; Stop 07/18/21 at 05:03; Status DC Active Scripts Active Fluoxetine Hcl 20 Mg Capsule 20 Mg PO DAILY 60 Days Magnesium Oxide 400 Mg Tablet 400 Mg PO DAILY Ferrous Sulfate 325 Mg Tablet 1 Tab PO DAILY Reported Amlodipine Besylate 10 Mg Tablet 1 Tab PO DAILY ROS: Review of Systems Review of System REVIEW OF SYSTEMS: GENERAL: Denies weakness SKIN: No bruising, hair changes or rashes. EYES: No blurred, double or loss of vision. NOSE AND THROAT: No history of nosebleeds, hoarseness or sore throat. HEART: No history of palpitations, chest pain or shortness of breath on exertion. LUNGS: Denies cough, hemoptysis, wheezing or shortness of breath. GASTROINTESTINAL: Denies changes in appetite, nausea, vomiting, diarrhea or constipation. GENITOURINARY: No history of frequency, urgency, hesitancy or nocturia. NEUROLOGIC: Denies history of numbness, tingling, or tremor. PSYCHIATRIC: No history of panic, anxiety or depression. ENDOCRINE: No history of heat or cold intolerance, polyuria or polydipsia. EXTREMITIES: Denies joint pain, pain on walking or stiffness. Physical Exam: Vital Signs: Vital Signs Date Time Temp Pulse Resp B/P (MAP) Pulse Ox O2 Delivery O2 Flow Rate FiO2 07/18/21 07:00 97.9 82 18 107/69 (82) 95 Room Air 97.9 Physcial Exam: GEN: No apparent distress. Alert and oriented HEENT: Normal cephalic, atraumatic, external auditory canals are patent EYES: Extraocular muscles are intact, pupil are equally round and reactive to light and accommodation MUSCULOSKELETAL: Well developed , well nourished, good range of motion ENDOCRINE: No thyromegaly was palpated LYMPHATICS: No cervical chain or axillary nodes were noted HEMATOPOIETIC: No bruising NECK: Supple, no JVD, no thyromegaly was noted LUNGS: Clear to auscultation in all lung yu without rhonchi or wheezing HEART: RRR, S!, S2 present. Peripheral pulses intact, no obvious murmurs noted ABDOMEN: Soft, nontender. Positive bowel sounds, no organomegaly, normal bowel sounds EXTREMITIES: Without clubbing, cyanosis, or edema. Pedal pulses intact. Negative Homans sign NEUROLOGIC: Normal speech and tone. A&O x 3, moves all extremities, no obvious focal deficits PSYCHIATRIC: Normal affect, normal mood. Stable SKIN: No ulcerations or rashes, good skin turgor, no jaundice VASCULAR: Good capillary refill, neurovascular bundle appears to be intact Labs: Labs: Laboratory Tests Test 07/17/21 23:05 07/18/21 02:35 White Blood Count 9.0 x10^3/uL (4.0-11.0) Red Blood Count 3.93 x10^6/uL (3.50-5.40) Hemoglobin 8.9 g/dL (12.0-15.5) Hematocrit 28.4 % (36.0-47.0) Mean Corpuscular Volume 72 fL (79-100) Mean Corpuscular Hemoglobin 23 pg (25-35) Mean Corpuscular Hemoglobin Concent 31 g/dL (31-37) Red Cell Distribution Width 25.6 % (11.5-14.5) Platelet Count 238 x10^3/uL (140-400) Neutrophils (%) (Auto) 79 % (31-73) Lymphocytes (%) (Auto) 11 % (24-48) Monocytes (%) (Auto) 8 % (0-9) Eosinophils (%) (Auto) 0 % (0-3) Basophils (%) (Auto) 1 % (0-3) Neutrophils # (Auto) 7.2 x10^3/uL (1.8-7.7) Lymphocytes # (Auto) 1.0 x10^3/uL (1.0-4.8) Monocytes # (Auto) 0.8 x10^3/uL (0.0-1.1) Eosinophils # (Auto) 0.0 x10^3/uL (0.0-0.7) Basophils # (Auto) 0.1 x10^3/uL (0.0-0.2) Platelet Estimate Adequate (ADEQUATE) Polychromasia Slight Hypochromasia Mod Anisocytosis Marked Microcytosis Slight Target Cells Few Prothrombin Time 13.0 SEC (11.7-14.0) Prothromb Time International Ratio 1.0 (0.8-1.1) Activated Partial Thromboplast Time 25 SEC (24-38) Sodium Level 135 mmol/L (136-145) Potassium Level 3.0 mmol/L (3.5-5.1) Chloride Level 99 mmol/L (98-107) Carbon Dioxide Level 21 mmol/L (21-32) Anion Gap 15 (6-14) Blood Urea Nitrogen 4 mg/dL (7-20) Creatinine 1.0 mg/dL (0.6-1.0) Estimated GFR (Cockcroft-Gault) 71.6 BUN/Creatinine Ratio 4 (6-20) Glucose Level 102 mg/dL (70-99) Calcium Level 8.3 mg/dL (8.5-10.1) Total Bilirubin 0.6 mg/dL (0.2-1.0) Aspartate Amino Transf (AST/SGOT) 34 U/L (15-37) Alanine Aminotransferase (ALT/SGPT) 34 U/L (14-59) Alkaline Phosphatase 73 U/L (46-116) Total Protein 7.9 g/dL (6.4-8.2) Albumin 3.5 g/dL (3.4-5.0) Albumin/Globulin Ratio 0.8 (1.0-1.7) Lipase 77 U/L (73-393) Ethyl Alcohol Level < 10 mg/dL (0-10) Urine Opiates Screen Neg (NEG) Urine Methadone Screen Neg (NEG) Urine Barbiturates Neg (NEG) Urine Phencyclidine Screen Pos (NEG) Urine Amphetamine/Methamphetamine Neg (NEG) Urine Benzodiazepines Screen Pos (NEG) Urine Cocaine Screen Neg (NEG) Urine Cannabinoids Screen Neg (NEG) Urine Ethyl Alcohol Neg (NEG) Laboratory Tests Test 07/17/21 23:05 07/18/21 02:35 White Blood Count 9.0 x10^3/uL (4.0-11.0) Red Blood Count 3.93 x10^6/uL (3.50-5.40) Hemoglobin 8.9 g/dL (12.0-15.5) Hematocrit 28.4 % (36.0-47.0) Mean Corpuscular Volume 72 fL (79-100) Mean Corpuscular Hemoglobin 23 pg (25-35) Mean Corpuscular Hemoglobin Concent 31 g/dL (31-37) Red Cell Distribution Width 25.6 % (11.5-14.5) Platelet Count 238 x10^3/uL (140-400) Neutrophils (%) (Auto) 79 % (31-73) Lymphocytes (%) (Auto) 11 % (24-48) Monocytes (%) (Auto) 8 % (0-9) Eosinophils (%) (Auto) 0 % (0-3) Basophils (%) (Auto) 1 % (0-3) Neutrophils # (Auto) 7.2 x10^3/uL (1.8-7.7) Lymphocytes # (Auto) 1.0 x10^3/uL (1.0-4.8) Monocytes # (Auto) 0.8 x10^3/uL (0.0-1.1) Eosinophils # (Auto) 0.0 x10^3/uL (0.0-0.7) Basophils # (Auto) 0.1 x10^3/uL (0.0-0.2) Platelet Estimate Adequate (ADEQUATE) Polychromasia Slight Hypochromasia Mod Anisocytosis Marked Microcytosis Slight Target Cells Few Prothrombin Time 13.0 SEC (11.7-14.0) Prothromb Time International Ratio 1.0 (0.8-1.1) Activated Partial Thromboplast Time 25 SEC (24-38) Sodium Level 135 mmol/L (136-145) Potassium Level 3.0 mmol/L (3.5-5.1) Chloride Level 99 mmol/L (98-107) Carbon Dioxide Level 21 mmol/L (21-32) Anion Gap 15 (6-14) Blood Urea Nitrogen 4 mg/dL (7-20) Creatinine 1.0 mg/dL (0.6-1.0) Estimated GFR (Cockcroft-Gault) 71.6 BUN/Creatinine Ratio 4 (6-20) Glucose Level 102 mg/dL (70-99) Calcium Level 8.3 mg/dL (8.5-10.1) Total Bilirubin 0.6 mg/dL (0.2-1.0) Aspartate Amino Transf (AST/SGOT) 34 U/L (15-37) Alanine Aminotransferase (ALT/SGPT) 34 U/L (14-59) Alkaline Phosphatase 73 U/L (46-116) Total Protein 7.9 g/dL (6.4-8.2) Albumin 3.5 g/dL (3.4-5.0) Albumin/Globulin Ratio 0.8 (1.0-1.7) Lipase 77 U/L (73-393) Ethyl Alcohol Level < 10 mg/dL (0-10) Urine Opiates Screen Neg (NEG) Urine Methadone Screen Neg (NEG) Urine Barbiturates Neg (NEG) Urine Phencyclidine Screen Pos (NEG) Urine Amphetamine/Methamphetamine Neg (NEG) Urine Benzodiazepines Screen Pos (NEG) Urine Cocaine Screen Neg (NEG) Urine Cannabinoids Screen Neg (NEG) Urine Ethyl Alcohol Neg (NEG) Images: Images No recent images to review Assessment/Plan Assessment/Plan Acute EtOH withdrawal Intractable nausea vomiting Acute metabolic encephalopathy Acute electrolyte derangementhyponatremia, hyper Po kalemia due to volume depletion Microcytic anemia likely due to combination of WINSTON versus elemental deficiencies Admit to hospitalist service for further management [] for DVT prophylaxis [] GI prophylaxis ADA diet CODE STATUS [] Discussed with RN and SW Disposition [] DPOA: [] Justifications for Admission Other Justification RED OLIVERA MD Jul 18, 2021 08:48
[2021-07-18] MEDS: THIAMINE IM 200 MG/2 ML VIAL. IM SCH (08:49)
[2021-07-18] MEDS ORDERED: diphenhydrAMINE 50 MG/ML VIAL IVP PRN (09:00)
[2021-07-18] MEDS ORDERED: diphenhydrAMINE HCL 25 MG CAPSULE PO PRN ×2 (09:00)
[2021-07-18] MEDS ORDERED: LORazepam 0.5 MG TABLET PO PRN (09:00)
[2021-07-18] MEDS ORDERED: PROCHLORPERAZINE 10 MG/2 ML VIAL. IV PRN (09:00)
[2021-07-18] MEDS ORDERED: SENNOSIDES 8.6 MG TABLET PO PRN (09:00)
[2021-07-18] MEDS ORDERED: DOCUSATE SODIUM 100 MG CAPSULE. PO PRN (09:00)
[2021-07-18] MEDS ORDERED: DEXTROSE 50% 25 GM / 50ML DISP.SYRIN. IV PRN (09:00)
[2021-07-18] MEDS ORDERED: ACETAMINOPHEN 325 MG TABLET. PO PRN (09:00)
[2021-07-18] MEDS ORDERED: ZOLPIDEM 5 MG TABLET. PO PRN (09:00)
[2021-07-18] MEDS: ENOXAPARIN 40 MG/0.4 ML SYRINGE. SQ SCH (09:32)
[2021-07-18] MEDS ORDERED: CYAN1TAB19 PO (10:46)
[2021-07-18] MEDS ORDERED: THIA100V3 IM (10:46)
--- NOTE | 2021-07-18 10:47 | DISCH ---
DISCHARGE INSTRUCTIONS Condition on Discharge Condition on Discharge: Stable Activity After Discharge Activity Instructions for Disc: Resume previous activity Lifting Instructions after Dis: No heavy lifting Exercise Instruction after Dis: Walk 30 min, 5 x per week Driving Instructions after Dis: Do not drive today Weight Bearing Status after Di: As tolerated Diet after Discharge Diet after Discharge: Cardiac, Regular Checks after Discharge Checks after discharge: Check blood press - daily, Check your Temp as needed Follow-Up Follow up with: PCP within 2 weeks of discharge Treatment/Equipment after DC Adaptive Equipment Issued: None RED OLIVERA MD Jul 18, 2021 10:47
[2021-07-18 11:00] VITALS: BP 128/92
[2021-07-18 11:09] LABS: CALCIUM 7.9 mg/dL (8.5-10.1); GFR 71.6; MAGNESIUM 1.4 mg/dL (1.8-2.4); POTASSIUM 3.2 mmol/L (3.5-5.1)
--- NOTE | 2021-07-18 11:52 | NUR ---
SW following. Discussed with RN, discharge order for home with self care. Pt is high risk readmission.
[2021-07-18 15:00] VITALS: BP 140/89
[2021-07-18] MEDS: MAGNESIUM SULFATE 2GM 50 ML IV SCH (18:00)
[2021-07-18] MEDS ORDERED: oxyCODONE/APAP 5/325 1 TAB TABLET PO PRN (18:45)
[2021-07-18 19:00] VITALS: BP 119/87
[2021-07-18] MEDS ORDERED: KETOROLAC 30 MG/ML VIAL. IVP ONE (19:30)
[2021-07-18] MEDS: FOLIC/VIT B COMP W-C (RENAL) TABLET. PO SCH (19:38)
[2021-07-18 23:09] VITALS: BP 115/71
[2021-07-19 03:00] VITALS: BP 139/92
[2021-07-19 07:00] VITALS: BP 136/92
[2021-07-19] MEDS: MULTIVITAMIN with MINERAL TABLET. PO SCH (09:06)
[2021-07-19] MEDS: FOLIC/VIT B COMP W-C (RENAL) TABLET. PO SCH (09:07)
[2021-07-19] MEDS: FOLIC ACID 1 MG TABLET. PO SCH (09:07)
[2021-07-19] MEDS: ENOXAPARIN 40 MG/0.4 ML SYRINGE. SQ SCH (09:07)
[2021-07-19] MEDS: THIAMINE IM 200 MG/2 ML VIAL. IM SCH (09:07)
[2021-07-19 09:35] LABS: BASO # 0.1 x10^3/uL (0.0-0.2); BASO % 1 % (0-3); EOS # 0.2 x10^3/uL (0.0-0.7); EOS % 4 % (0-3); HEMATOCRIT 23.6 % (36.0-47.0); HEMOGLOBIN 7.2 g/dL (12.0-15.5); LYMPH # 0.8 x10^3/uL (1.0-4.8); LYMPH % 17 % (24-48); MEAN CORPUSCULAR HEMOGLOBIN 22 pg (25-35); MEAN CORPUSCULAR HGB CONC 31 g/dL (31-37); MEAN CORPUSCULAR VOLUME 73 fL (79-100); MONO # 0.5 x10^3/uL (0.0-1.1); MONO % 10 % (0-9); NEUT # 3.3 x10^3/uL (1.8-7.7); PLATELET COUNT 177 x10^3/uL (140-400); RED BLOOD COUNT 3.23 x10^6/uL (3.50-5.40); WHITE BLOOD COUNT 4.8 x10^3/uL (4.0-11.0)
[2021-07-19 09:46] LABS: CREATININE 0.7 mg/dL (0.6-1.0); GFR 108.1; PHOSPHORUS 3.6 mg/dL (2.6-4.7); POTASSIUM 3.6 mmol/L (3.5-5.1)
[2021-07-19 10:48] LABS: NEUT % 68 % (31-73)
[2021-07-19 11:00] VITALS: BP 130/80
[2021-07-19 15:00] VITALS: BP 130/88
[2021-07-19] MEDS: MAGNESIUM SULFATE 2GM 50 ML IV SCH (16:45)
[2021-07-19 19:00] VITALS: BP 122/65
[2021-07-19 23:00] VITALS: BP 142/88
[2021-07-20 03:00] VITALS: BP 103/67
[2021-07-20 04:00] LABS: BASO % 1 % (0-3); EOS # 0.3 x10^3/uL (0.0-0.7); EOS % 4 % (0-3); HEMATOCRIT 23.1 % (36.0-47.0); HEMOGLOBIN 7.1 g/dL (12.0-15.5); LYMPH # 1.1 x10^3/uL (1.0-4.8); LYMPH % 16 % (24-48); MEAN CORPUSCULAR HEMOGLOBIN 23 pg (25-35); MEAN CORPUSCULAR HGB CONC 31 g/dL (31-37); MEAN CORPUSCULAR VOLUME 74 fL (79-100); MONO # 0.6 x10^3/uL (0.0-1.1); MONO % 8 % (0-9); NEUT # 4.8 x10^3/uL (1.8-7.7); NEUT % 71 % (31-73); PLATELET COUNT 188 x10^3/uL (140-400); RED CELL DISTRIBUTION WIDTH 25.1 % (11.5-14.5); WHITE BLOOD COUNT 6.8 x10^3/uL (4.0-11.0)
[2021-07-20 04:14] LABS: CALCIUM 8.2 mg/dL (8.5-10.1); CREATININE 0.8 mg/dL (0.6-1.0); GFR 92.6; MAGNESIUM 2.2 mg/dL (1.8-2.4); POTASSIUM 3.2 mmol/L (3.5-5.1)
[2021-07-20 07:00] VITALS: BP 110/75
[2021-07-20] MEDS: FOLIC ACID 1 MG TABLET. PO SCH (08:39)
[2021-07-20] MEDS: FOLIC/VIT B COMP W-C (RENAL) TABLET. PO SCH (08:39)
[2021-07-20] MEDS: MULTIVITAMIN with MINERAL TABLET. PO SCH (08:39)
[2021-07-20] MEDS: ENOXAPARIN 40 MG/0.4 ML SYRINGE. SQ SCH (08:40)
[2021-07-20] MEDS: THIAMINE IM 200 MG/2 ML VIAL. IM SCH (08:40)
--- NOTE | 2021-07-20 08:53 | PDOC ---
[facility] PROGRESS NOTE Date of Service DOS: DATE: 07/19/21 TIME: 08:51 Chief Complaint Chief Complaint Assessment/Plan Acute EtOH withdrawal Intractable nausea vomiting Acute metabolic encephalopathy Acute electrolyte derangementhyponatremia, hyper Po kalemia due to volume depletion Microcytic anemia likely due to combination of WINSTON versus elemental deficiencies Admit to hospitalist service for further management SCD and ambulation for DVT prophylaxis Protonix GI prophylaxis ADA diet CODE STATUS full Discussed with RN and SW Disposition inpatient management as above DPOA: Mother History of Present Illness History of Present Illness 50-year-old female with a history of hypertension, chronic anemia and alcohol abuse. She has had a recent admission for alcohol withdrawal. She presents with concern for alcohol withdrawal. States that her last drink of alcohol was last night. She does not answer clearly when asked why she chose to stop drinking last night. She complains of vomiting, epigastric discomfort and shakiness. She denies fevers, hematemesis, hematochezia or melena, upper respiratory congestion/rhinorrhea, cough, sore throat, shortness of breath or chest pain of any kind, right-sided or lower abdominal pain of any kind, flank pain, midline back pain, dysuria, hematuria, polyuria or oliguria, changes in bowel habits. Patient is alert and appropriately interactive and in no acute distress upon initial evaluation here in the emergency department. 07/19/2021 Patient still not tolerating diet adequately. Patient's chart, labs, images were reviewed and discussed with RN Vitals/I&O Vitals/I&O: Vital Signs Date Time Temp Pulse Resp B/P (MAP) Pulse Ox O2 Delivery O2 Flow Rate FiO2 07/20/21 03:00 98.0 81 18 103/67 (79) 99 Room Air 98.0 I & O 07/19/21 07/19/21 07/20/21 15:00 23:00 07:00 Intake Total 200 ml Balance 200 ml Physical Exam General: Alert, Cooperative Heart: Regular rate Lungs: Clear, Other Abdomen: Normal bowel sounds Extremities: No clubbing Labs Labs: Laboratory Tests Test 07/20/21 03:05 White Blood Count 6.8 x10^3/uL (4.0-11.0) Red Blood Count 3.10 x10^6/uL (3.50-5.40) Hemoglobin 7.1 g/dL (12.0-15.5) Hematocrit 23.1 % (36.0-47.0) Mean Corpuscular Volume 74 fL (79-100) Mean Corpuscular Hemoglobin 23 pg (25-35) Mean Corpuscular Hemoglobin Concent 31 g/dL (31-37) Red Cell Distribution Width 25.1 % (11.5-14.5) Platelet Count 188 x10^3/uL (140-400) Neutrophils (%) (Auto) 71 % (31-73) Lymphocytes (%) (Auto) 16 % (24-48) Monocytes (%) (Auto) 8 % (0-9) Eosinophils (%) (Auto) 4 % (0-3) Basophils (%) (Auto) 1 % (0-3) Neutrophils # (Auto) 4.8 x10^3/uL (1.8-7.7) Lymphocytes # (Auto) 1.1 x10^3/uL (1.0-4.8) Monocytes # (Auto) 0.6 x10^3/uL (0.0-1.1) Eosinophils # (Auto) 0.3 x10^3/uL (0.0-0.7) Basophils # (Auto) 0.0 x10^3/uL (0.0-0.2) Sodium Level 135 mmol/L (136-145) Potassium Level 3.2 mmol/L (3.5-5.1) Chloride Level 102 mmol/L (98-107) Carbon Dioxide Level 26 mmol/L (21-32) Anion Gap 7 (6-14) Blood Urea Nitrogen 5 mg/dL (7-20) Creatinine 0.8 mg/dL (0.6-1.0) Estimated GFR (Cockcroft-Gault) 92.6 Glucose Level 107 mg/dL (70-99) Calcium Level 8.2 mg/dL (8.5-10.1) Magnesium Level 2.2 mg/dL (1.8-2.4) Assessment and Plan Assessmemt and Plan Problems Medical Problems: (1) Alcohol withdrawal Status: Acute Comment Review of Relevant I have reviewed the following items uqinn (where applicable) has been applied. Justifications for Admission Other Justification Intractable nausea vomiting RED OLIVERA MD Jul 20, 2021 08:53
[2021-07-20] MEDS ORDERED: POTASSIUM CHLORIDE 20 MEQ TABLET.ER. PO SCH (09:00)
[2021-07-20 11:00] VITALS: BP 148/79
--- NOTE | 2021-07-20 12:41 | NUR ---
SW following. Discussed with RN, discharge orders for home with self care. RN advised no SW needs.
[2021-07-20] MEDS ORDERED: LORA0.5T96 PO (14:24)
--- NOTE | 2021-07-20 14:45 | NUR ---
DISCHARGE INSTRUCTIONS GIVEN, QUESTIONS AND CONCERNS ANSWERED, PATIENT VERBALIZED UNDERSTANDING OF DISCHARGE INFORMATION INCLUDING TAKING ALL MEDICATIONS INSTRUCTED AND FOLLOWING UP WITH HER PRIMARY PROVIDER IN 1-2 WEEKS, PATIENT ENCOURAGED PER THIS GRADER OPERATOR TO REFRAIN FROM CONSUMING ALCOHOLIC BEVERAGES. PATIENT INQUIRING ABOUT PRESCRIPTION FOR ATIVAN, PATIENT INFORMED THAT SCRIPT HAD BEEN SENT TO HER PHARMACY PER DR. OLIVERA.
--- NOTE | 2021-07-20 15:05 | NUR ---
PATIENT LEAVES THE UNIT PER W/C AND ACCOMPANIED BY THIS COTTAGE CHEESE MAKER, EMOTIONAL SUPPORT GIVEN.
== END 2021-07-20 15:05 | disposition home or self-care (01) | DRG 640 ==
LOC: ER 21:24 → 5 NORTH 07-18 00:36
PROVIDERS: ADMIT Student in an Organized Health Care Education/Training Program; ATTEND Student in an Organized Health Care Education/Training Program
DX: E87.1 Hypo-osmolality and hyponatremia (principal); G93.41 Metabolic encephalopathy; F10.239 Alcohol dependence with withdrawal, unspecified; E87.6 Hypokalemia; E86.9 Volume depletion, unspecified; D50.9 Iron deficiency anemia, unspecified; I10 Essential (primary) hypertension; F41.9 Anxiety disorder, unspecified; Y90.0 Blood alcohol level of less than 20 mg/100 ml; Z79.899 Other long term (current) drug therapy
CPT/HCPCS: 36415; 80048; 80053; 80307; 82607; 82728; 83690; 83735; 84100; 85025; 85610; 85730; 96365; 96372; 96375; 96376; G0480; J0500; J1650; J1885; J2060; J2405; J3411; J3475; J7030; J7060; 99285-25; G0378; Q0163

== ENCOUNTER 2021-08-22 23:09 | Emergency (ER) | payer SELFPAY ==
[~2021-08-22] VITALS: Ht 162.6 cm; Wt 81.8 kg
[~2021-08-22 23:09] MED LIST changes: +CYAN1TAB19 PO; +LORA0.5T96 PO; +THIA100V3 IM
[2021-08-23] MEDS ORDERED: ONDANSETRON PF 4 MG/2 ML VIAL. IVP ONE (00:30)
[2021-08-23 00:46] LABS: HEMATOCRIT 26.2 % (36.0-47.0); HEMOGLOBIN 8.1 g/dL (12.0-15.5); MEAN CORPUSCULAR HEMOGLOBIN 21 pg (25-35); MEAN CORPUSCULAR HGB CONC 31 g/dL (31-37); MEAN CORPUSCULAR VOLUME 67 fL (79-100); PLATELET COUNT 357 x10^3/uL (140-400); RED CELL DISTRIBUTION WIDTH 21.8 % (11.5-14.5)
[2021-08-23 00:53] LABS: AMPHETAMINE/METHAMPHETAMINE NEG (NEG); BARBITURATES NEG (NEG); BENZODIAZEPINES NEG (NEG); CANNABINOIDS NEG (NEG); COCAINE NEG (NEG); METHADONE NEG (NEG); OPIATES NEG (NEG); PHENCYCLIDINE NEG (NEG)
[2021-08-23 00:53] LABS: CALCIUM 8.6 mg/dL (8.5-10.1); CREATININE 0.8 mg/dL (0.6-1.0); GFR 92.6; POTASSIUM 3.1 mmol/L (3.5-5.1)
[2021-08-23 00:59] LABS: ALBUMIN 3.4 g/dL (3.4-5.0); ALBUMIN/GLOBULIN RATIO 0.7 (1.0-1.7); TOTAL BILIRUBIN 0.4 mg/dL (0.2-1.0); TOTAL PROTEIN 8.3 g/dL (6.4-8.2)
[2021-08-23] MEDS ORDERED: MULTIVIT INFUSN,ADULT 4,VIT K 10 ML, THIAMINE INJ 100 MG, FOLIC ACID INJ 1 MG in IV NOR... IV ONE (01:00)
[2021-08-23 01:29] LABS: % EOS 1 % (0-5); % LYMPHS 19 % (24-48); % MONOS 7 % (0-10); % SEGS 73 % (35-66)
[2021-08-23 01:30] LABS: ANISOCYTOSIS MOD; HYPOCHROMIA MARKED; MICROCYTOSIS MARKED; PLT ESTIMATE ADEQUATE (ADEQUATE)
[2021-08-23] MEDS ORDERED: POTASSIUM CHLORIDE 20 MEQ TABLET.ER. PO ONE (02:30)
[2021-08-23] MEDS ORDERED: chlordiazePOXIDE HCL 25 MG CAPSULE PO ONE (03:00)
--- NOTE | 2021-08-23 05:48 | PHYS DOC ---
Past Medical History Past Medical History: Alcoholism, Anemia, Anxiety, Hypertension, Other Additional Past Medical Histor: ETOH abuse Past Surgical History: No Surgical History Smoking Status: Former Smoker Alcohol Use: Heavy Drug Use: None General Adult EDM: Chief Complaint: WITHDRAWL HPI: HPI: Patient is a 50 year old female presents with nausea vomiting. Patient is an alcoholic who drinks approximately 1 pint of liquor a day. States that she drinks really hard this weekend and states that she feels like she has alcohol poisoning. Patient states that she did try to drink this morning to stave off her symptoms but states that she felt worse and presents to the ER today. Patient denies any chest pain reports nausea vomiting decreased appetite. Body aches. Denies drug use. Review of Systems: Review of Systems: Constitutional: Denies fever or chills. [] Eyes: Denies change in visual acuity. [] HENT: Denies nasal congestion or sore throat. [] Respiratory: Denies cough or shortness of breath. [] Cardiovascular: Denies chest pain or edema. [] GI: Nausea vomiting denies abdominal pain no change in stool habits decreased appetite : Denies dysuria. [] Musculoskeletal: Myalgias denies back pain or joint pain. [] Integument: Denies rash. [] Neurologic: Denies headache, focal weakness or sensory changes. [] Endocrine: Denies polyuria or polydipsia. [] Lymphatic: Denies swollen glands. [] Psychiatric: Denies depression or anxiety. [] Heart Score: C/O Chest Pain: No Risk Factors: Risk Factors: DM, Current or recent (<one month) smoker, HTN, HLP, family history of CAD, obesity. Risk Scores: Score 0 - 3: 2.5% MACE over next 6 weeks - Discharge Home Score 4 - 6: 20.3% MACE over next 6 weeks - Admit for Clinical Observation Score 7 - 10: 72.7% MACE over next 6 weeks - Early Invasive Strategies Current Medications: Current Medications Medications (Trade) Dose Ordered Sig/Beatris Start Time Stop Time Status Last Admin Dose Admin Chlordiazepoxide (Librium) 25 mg 1X ONCE 08/23/21 03:00 08/23/21 03:01 DC 08/23/21 03:22 25 MG Lorazepam (Ativan Inj) 1 mg 1X ONCE 08/23/21 03:00 08/23/21 03:01 DC 08/23/21 03:23 1 MG Multivitamins 10 ml/Thiamine HCl 100 mg/Folic Acid 1 mg/Sodium Chloride 1,011.2 ml @ 1,000.088 mls/hr 1X ONCE 08/23/21 01:00 08/23/21 02:00 DC 08/23/21 00:41 1,000.088 MLS/HR Ondansetron HCl (Zofran) 4 mg 1X ONCE 08/23/21 00:30 08/23/21 00:31 DC 08/23/21 00:43 4 MG Potassium Chloride (Klor-Con) 20 meq 1X ONCE 08/23/21 02:30 08/23/21 02:31 DC 08/23/21 03:22 20 MEQ Allergies: Allergies: Allergies Coded Allergies Type Severity Reaction Last Updated Verified No Known Drug Allergies 07/17/21 No Physical Exam: PE: Constitutional: Well developed, well nourished, no acute distress, ill-appearing actively vomiting HENT: Normocephalic, atraumatic, bilateral external ears normal, oropharynx mo ist, no oral exudates, nose normal. [] Eyes: PERRLA, EOMI, conjunctiva normal, no discharge. [] Neck: Normal range of motion, no tenderness, supple, no stridor. [] Cardiovascular: Tachycardic heart rate regular rhythm, no murmur [] Lungs & Thorax: Bilateral breath sounds clear to auscultation [] Abdomen: Bowel sounds normal, soft, no tenderness, no masses, no pulsatile masses. [] Skin: Warm, dry, no erythema, no rash. [] Back: No tenderness, no CVA tenderness. [] Extremities: No tenderness, no cyanosis, no clubbing, ROM intact, no edema. [] Neurologic: Alert and oriented X 3, normal motor function, normal sensory function, no focal deficits noted. [] Psychologic: Affect normal, judgement normal, mood normal. [] Current Patient Data: Labs: Laboratory Tests Test 08/23/21 00:33 08/23/21 00:35 White Blood Count 7.0 x10^3/uL (4.0-11.0) Red Blood Count 3.90 x10^6/uL (3.50-5.40) Hemoglobin 8.1 g/dL (12.0-15.5) L Hematocrit 26.2 % (36.0-47.0) L Mean Corpuscular Volume 67 fL (79-100) L Mean Corpuscular Hemoglobin 21 pg (25-35) L Mean Corpuscular Hemoglobin Concent 31 g/dL (31-37) Red Cell Distribution Width 21.8 % (11.5-14.5) H Platelet Count 357 x10^3/uL (140-400) Neutrophils (%) (Auto) % (31-73) Lymphocytes (%) (Auto) % (24-48) Monocytes (%) (Auto) % (0-9) Eosinophils (%) (Auto) % (0-3) Basophils (%) (Auto) % (0-3) Neutrophils # (Auto) x10^3/uL (1.8-7.7) Lymphocytes # (Auto) x10^3/uL (1.0-4.8) Monocytes # (Auto) x10^3/uL (0.0-1.1) Eosinophils # (Auto) x10^3/uL (0.0-0.7) Basophils # (Auto) x10^3/uL (0.0-0.2) Segmented Neutrophils % 73 % (35-66) H Lymphocytes % 19 % (24-48) L Monocytes % 7 % (0-10) Eosinophils % 1 % (0-5) Platelet Estimate Adequate (ADEQUATE) Hypochromasia Marked Anisocytosis Mod Microcytosis Marked Sodium Level 136 mmol/L (136-145) Potassium Level 3.1 mmol/L (3.5-5.1) L Chloride Level 97 mmol/L (98-107) L Carbon Dioxide Level 26 mmol/L (21-32) Anion Gap 13 (6-14) Blood Urea Nitrogen 5 mg/dL (7-20) L Creatinine 0.8 mg/dL (0.6-1.0) Estimated GFR (Cockcroft-Gault) 92.6 BUN/Creatinine Ratio 6 (6-20) Glucose Level 106 mg/dL (70-99) H Calcium Level 8.6 mg/dL (8.5-10.1) Total Bilirubin 0.4 mg/dL (0.2-1.0) Aspartate Amino Transferase (AST) 59 U/L (15-37) H Alanine Aminotransferase (ALT) 29 U/L (14-59) Alkaline Phosphatase 78 U/L (46-116) Troponin I High Sensitivity 38 ng/L (4-50) Total Protein 8.3 g/dL (6.4-8.2) H Albumin 3.4 g/dL (3.4-5.0) Albumin/Globulin Ratio 0.7 (1.0-1.7) L Lipase 102 U/L (73-393) Ethyl Alcohol Level 48 mg/dL (0-10) H Urine Opiates Screen Neg (NEG) Urine Methadone Screen Neg (NEG) Urine Barbiturates Neg (NEG) Urine Phencyclidine Screen Neg (NEG) Urine Amphetamine/Methamphetamine Neg (NEG) Urine Benzodiazepines Screen Neg (NEG) Urine Cocaine Screen Neg (NEG) Urine Cannabinoids Screen Neg (NEG) Urine Ethyl Alcohol Pos (NEG) Laboratory Tests 08/23/21 00:33 Laboratory Tests 08/23/21 00:33 Vital Signs: Vital Signs Date Time Temp Pulse Resp B/P (MAP) Pulse Ox O2 Delivery O2 Flow Rate FiO2 08/23/21 03:37 82 20 193/89 (123) 100 Room Air 08/22/21 23:43 98.4 98.4 EKG: EKG: [] Patient has EKG with a sinus rhythm heart rate of 90 QTC of 447 ND 186 Radiology/Procedures: Radiology/Procedures: [] Course & Med Decision Making: Course & Med Decision Making Pertinent Labs and Imaging studies reviewed. (See chart for details) [] Patient pending a second troponin to rule out atypical chest pain. Patient's hemodynamically stable and clinically improved. Case endorsed to Dr.Freeman Elizondo Disclaimer: Mikhail Disclaimer: This electronic medical record was generated, in whole or in part, using a voice recognition dictation system. Departure Departure Impression: Primary Impression: Alcohol withdrawal Disposition: HOME / SELF CARE / HOMELESS Condition: STABLE Referrals: NO PCP (PCP) Patient Instructions: Alcohol Withdrawal, [id number] Scripts Chlordiazepoxide Hcl (CHLORDIAZEPOXIDE HCL) 25 Mg Capsule 25 MG PO PRN 2-3XD PRN for ALCOHOL WITHDRAWAL, #10 CAP Prov: CANDIS GALVAN DO 08/23/21 CANDIS GALVAN DO Aug 23, 2021 05:48
[2021-08-23] MEDS ORDERED: CHLO25CA9 PO (05:52)
[2021-08-23 06:37] VITALS: BP 135/80
--- NOTE | 2021-08-23 06:40 | PHYS DOC ---
Past Medical History Past Medical History: Alcoholism, Anemia, Anxiety, Hypertension, Other Additional Past Medical Histor: ETOH abuse Past Surgical History: No Surgical History Smoking Status: Former Smoker Alcohol Use: Heavy Drug Use: None Adult General Chief Complaint Chief Complaint: WITHDRAWL HPI HPI Patient is a 50 year old female who presented with ETOH withdrawal. Patient was initially seen by Dr. Galvan. I assumed care at shift turnover. At that time, repeat troponin pending Review of Systems Review of Systems Constitutional: Denies fever or chills Eyes: Denies HENT: Denies Respiratory: Denies Cardiovascular: No chest pain GI: Denies abdominal pain, nausea, vomiting, bloody stools or diarrhea Musculoskeletal: Denies back pain or joint pain Integument: Denies Neurologic: Denies Endocrine: Denies All other systems were reviewed and found to be within normal limits, except as documented in this note. Current Medications Current Medications Current Medications Medications (Trade) Dose Ordered Sig/Beatris Start Time Stop Time Status Last Admin Dose Admin Chlordiazepoxide (Librium) 25 mg 1X ONCE 08/23/21 03:00 08/23/21 03:01 DC 08/23/21 03:22 25 MG Lorazepam (Ativan Inj) 1 mg 1X ONCE 08/23/21 03:00 08/23/21 03:01 DC 08/23/21 03:23 1 MG Multivitamins 10 ml/Thiamine HCl 100 mg/Folic Acid 1 mg/Sodium Chloride 1,011.2 ml @ 1,000.088 mls/hr 1X ONCE 08/23/21 01:00 08/23/21 02:00 DC 08/23/21 00:41 1,000.088 MLS/HR Ondansetron HCl (Zofran) 4 mg 1X ONCE 08/23/21 00:30 08/23/21 00:31 DC 08/23/21 00:43 4 MG Potassium Chloride (Klor-Con) 20 meq 1X ONCE 08/23/21 02:30 08/23/21 02:31 DC 08/23/21 03:22 20 MEQ Allergies Allergies Allergies Coded Allergies Type Severity Reaction Last Updated Verified No Known Drug Allergies 07/17/21 No Physical Exam Physical Exam Constitutional: Well developed, well nourished, no acute distress, non-toxic appearance HENT: Normocephalic, atraumatic Eyes: PERRLA, EOMI Neck: Normal range of motion Cardiovascular:Heart rate regular rhythm, no murmur Lungs & Thorax: Bilateral breath sounds clear Skin: Warm, dry, no erythema, no rash. Back: Normal ROM Extremities: Normal ROM Neurologic: Alert and oriented X 3, normal motor function Psychologic: Affect normal Current Patient Data Vital Signs Vital Signs Date Time Temp Pulse Resp B/P (MAP) Pulse Ox O2 Delivery O2 Flow Rate FiO2 08/23/21 05:37 84 20 130/85 (100) 100 Room Air 08/22/21 23:43 98.4 98.4 Lab Values Laboratory Tests Test 08/23/21 00:33 08/23/21 00:35 08/23/21 04:50 White Blood Count 7.0 x10^3/uL (4.0-11.0) Red Blood Count 3.90 x10^6/uL (3.50-5.40) Hemoglobin 8.1 g/dL (12.0-15.5) L Hematocrit 26.2 % (36.0-47.0) L Mean Corpuscular Volume 67 fL (79-100) L Mean Corpuscular Hemoglobin 21 pg (25-35) L Mean Corpuscular Hemoglobin Concent 31 g/dL (31-37) Red Cell Distribution Width 21.8 % (11.5-14.5) H Platelet Count 357 x10^3/uL (140-400) Neutrophils (%) (Auto) % (31-73) Lymphocytes (%) (Auto) % (24-48) Monocytes (%) (Auto) % (0-9) Eosinophils (%) (Auto) % (0-3) Basophils (%) (Auto) % (0-3) Neutrophils # (Auto) x10^3/uL (1.8-7.7) Lymphocytes # (Auto) x10^3/uL (1.0-4.8) Monocytes # (Auto) x10^3/uL (0.0-1.1) Eosinophils # (Auto) x10^3/uL (0.0-0.7) Basophils # (Auto) x10^3/uL (0.0-0.2) Segmented Neutrophils % 73 % (35-66) H Lymphocytes % 19 % (24-48) L Monocytes % 7 % (0-10) Eosinophils % 1 % (0-5) Platelet Estimate Adequate (ADEQUATE) Hypochromasia Marked Anisocytosis Mod Microcytosis Marked Sodium Level 136 mmol/L (136-145) Potassium Level 3.1 mmol/L (3.5-5.1) L Chloride Level 97 mmol/L (98-107) L Carbon Dioxide Level 26 mmol/L (21-32) Anion Gap 13 (6-14) Blood Urea Nitrogen 5 mg/dL (7-20) L Creatinine 0.8 mg/dL (0.6-1.0) Estimated GFR (Cockcroft-Gault) 92.6 BUN/Creatinine Ratio 6 (6-20) Glucose Level 106 mg/dL (70-99) H Calcium Level 8.6 mg/dL (8.5-10.1) Total Bilirubin 0.4 mg/dL (0.2-1.0) Aspartate Amino Transferase (AST) 59 U/L (15-37) H Alanine Aminotransferase (ALT) 29 U/L (14-59) Alkaline Phosphatase 78 U/L (46-116) Troponin I High Sensitivity 38 ng/L (4-50) 38 ng/L (4-50) Total Protein 8.3 g/dL (6.4-8.2) H Albumin 3.4 g/dL (3.4-5.0) Albumin/Globulin Ratio 0.7 (1.0-1.7) L Lipase 102 U/L (73-393) Ethyl Alcohol Level 48 mg/dL (0-10) H Urine Opiates Screen Neg (NEG) Urine Methadone Screen Neg (NEG) Urine Barbiturates Neg (NEG) Urine Phencyclidine Screen Neg (NEG) Urine Amphetamine/Methamphetamine Neg (NEG) Urine Benzodiazepines Screen Neg (NEG) Urine Cocaine Screen Neg (NEG) Urine Cannabinoids Screen Neg (NEG) Urine Ethyl Alcohol Pos (NEG) Laboratory Tests 08/23/21 00:33 Laboratory Tests 08/23/21 00:33 EKG EKG [] Radiology/Procedures Radiology/Procedures [] Course & Med Decision Making Course & Med Decision Making Pertinent Labs and Imaging studies reviewed. (See chart for details) 06:45: I assumed care of this patient at shift turnover. I did reevaluate the patient. She is currently feeling improved. No nausea or vomiting. She is stable for discharge home. Her repeat troponin returned and there was no change from the initial. No acute findings on EKG. Prescriptions had already been sent by Dr. Galvan. Patient was agreeable to the discharge plan of care. Dragon Disclaimer Dragon Disclaimer This electronic medical record was generated, in whole or in part, using a voice recognition dictation system. Departure Departure Impression: Primary Impression: Alcohol withdrawal Disposition: HOME / SELF CARE / HOMELESS Condition: IMPROVED Referrals: NO PCP (PCP) Patient Instructions: Alcohol Withdrawal, Teve-by-Ugxd Scripts Chlordiazepoxide Hcl (CHLORDIAZEPOXIDE HCL) 25 Mg Capsule 25 MG PO PRN 2-3XD PRN for ALCOHOL WITHDRAWAL, #10 CAP Prov: CANDIS GALVAN DO 08/23/21 MALATHI SOLITARIO DO Aug 23, 2021 06:40
--- NOTE | 2021-08-23 11:47 | EKG ---
[facility] [address] [place] [address] Test Date: 2021-08-23 Test Time: 00:00:00 Pat Name: LORENA ZAPATA Department: Room: Gender: F Dental Therapist: : 1970 Requested By: CANDIS GALVAN Order Number: [id number] Reading MD: Samir Pérez Measurements Intervals [place] Rate: 90 P: 4 NC: 186 QRS: -18 QRSD: 70 T: 33 QT: 362 QTc: 447 Interpretive Statements SINUS RHYTHM LEFT ATRIAL ABNORMALITY Electronically Signed On 08-23-2021 16:17:21 CDT by Samir Pérez
== END 2021-08-23 07:30 | disposition home or self-care (01) ==
LOC: ER 23:09
DX: F10.239 Alcohol dependence with withdrawal, unspecified (principal); Y90.2 Blood alcohol level of 40-59 mg/100 ml; R11.2 Nausea with vomiting, unspecified; I10 Essential (primary) hypertension; Z87.891 Personal history of nicotine dependence
CPT/HCPCS: 36415; 80053; 80307; 83690; 84484; 85007; 85025; 93005; 96365; 96366; 96375; 96376; 99285; G0480; J2060; J2405; J3411; J3490; J7030; 96374